=== PATIENT | female | born 1935 | race Caucasian/White ===

== ENCOUNTER → 2017-09-10 | Outpatient (CLI) | payer MEDICARE, OTHER ==
[2014-08-05 06:28] VITALS: BP 136/64
[~2017-09-10] MED LIST: ALEN70TA3 PO; AMLO10TA4 PO; ASCO500T2 PO; AZIT250T PO; AZIT500T PO; CARV12.5 PO; CELE200C PO; CHOL10003 PO; CITA10TA4 PO; CYAN10005 PO; DOCU240C30 PO; FENT1PAT91 TP; FERR325T58 PO; FEXO180T16 PO; FURO40TA4 PO; Fentanyl TD; GABA-586 PO; GLIP5TAB10 PO; HYDR-2678 PO; HYDR-2762 PO; LEVO50TA PO; MULT-246 PO; OMEG1CAP6 PO; OMEP20TA8 PO; POTA10TA10 PO; SIMV20TA3 PO; SITA100T PO; TOLT4CAP PO; TRAM50TA PO
[2017-09-10 13:01] LABS: BASO # 0.1 x10^3/uL (0.0-0.2); BASO % 1 % (0-3); EOS # 0.2 x10^3/uL (0.0-0.7); EOS % 4 % (0-3); HEMATOCRIT 37.4 % (36.0-47.0); HEMOGLOBIN 12.7 g/dL (12.0-15.5); LYMPH # 1.7 x10^3/uL (1.0-4.8); LYMPH % 26 % (24-48); MEAN CORPUSCULAR HEMOGLOBIN 31 pg (25-35); MEAN CORPUSCULAR HGB CONC 34 g/dL (31-37); MEAN CORPUSCULAR VOLUME 91 fL (79-100); MONO # 0.6 x10^3/uL (0.0-1.1); MONO % 9 % (0-9); NEUT # 3.8 x10^3uL (1.8-7.7); NEUT % 60 % (31-73); PLATELET COUNT 186 x10^3/uL (140-400); RED BLOOD COUNT 4.12 x10^6/uL (3.50-5.40); RED CELL DISTRIBUTION WIDTH 14.1 % (11.5-14.5); WHITE BLOOD COUNT 6.3 x10^3/uL (4.0-11.0)
[2017-09-10 13:11] LABS: ALBUMIN 3.7 g/dL (3.4-5.0); CALCIUM 9.5 mg/dL (8.5-10.1); CREATININE 1.6 mg/dL (0.6-1.0); GFR 30.7; TOTAL BILIRUBIN 0.4 mg/dL (0.2-1.0); TOTAL PROTEIN 7.4 g/dL (6.4-8.2)
--- NOTE | 2017-09-10 13:48 | RAD ---
Examination: CT abdomen without contrast HISTORY: History of right upper quadrant tenderness for 3 weeks COMPARISON: 08/03/2014 TECHNIQUE: Axial CT images of the abdomen was performed without contrast. Coronal and sagittal reformats are performed Exposure: One or more of the following individualized dose reduction techniques were utilized for this examination: 1. Automated exposure control 2. Adjustment of the mA and/or kV according to patient size 3. Use of iterative reconstruction technique FINDINGS: Minimal atelectasis bibasilar lungs. No evidence of free air identified in the visualized abdomen. The evaluation of the solid organs is limited due to lack of IV contrast. Evaluation of bowel is limited due to lack of oral contrast. Calcification of the mitral valve identified. Cholecystectomy clips identified. Small cystic hypodensities identified in the liver the largest measuring 1 cm in the right lobe of the liver probably cysts. The visualized spleen, right adrenal grossly appears unremarkable. 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 The visualized pancreas grossly appears unremarkable. Small hiatal hernia is identified. The small bowel is nondilated. Feces and gas noted in the visualized colon. There is a partially visualized cystic structure identified in the right lower quadrant abdomen measuring 4.1 cm could be a right ovarian cyst or cystic lesion is only partially visualized. There is a small fatty density identified in the right kidney measuring 1 cm likely angiomyolipoma. There is a small cystic structure identified in the right kidney measuring 1 cm likely a cyst, unchanged. There is a small cystic structure identified in the left kidney measuring 4 mm is difficult to characterize could be a cyst or cystic lesion. In the superior pole of the left kidney, there is a tiny hyperdensity measuring 8 mm and in the lower pole of the left kidney there is a hyperdensity measuring 1.8 cm appears more prominent compared to prior exam where it measured 8 mm could be a hyperdense cyst or cystic lesion. Moderate degenerative changes thoracolumbar spine. IMPRESSION: 1. Left renal hyperdense cyst or cystic lesions as described. Recommend ultrasound kidneys for further evaluation. 2. Post cholecystectomy changes. 3. Hiatal hernia. 4. A 4.1 cm partially visualized cystic structure identified in the right lower quadrant abdomen probably a right ovarian cyst or cystic lesion. Follow-up nonemergent ultrasound pelvis can be considered. Electronically signed by: Diego Winston MD (09/10/2017 1:45 PM) [id number]
== END | disposition home or self-care (01) ==
LOC: CT 12:23
PROVIDERS: ATTEND Family Medicine
DX: K44.9 Diaphragmatic hernia without obstruction or gangrene (principal); I10 Essential (primary) hypertension; E78.5 Hyperlipidemia, unspecified; E03.9 Hypothyroidism, unspecified; Z90.49 Acquired absence of other specified parts of digestive tract
CPT/HCPCS: 36415; 74150; 80053; 83690; 85025; 85379

== ENCOUNTER 2019-07-20 11:52 | Observation (INO) | payer MEDICARE, OTHER ==
[~2019-07-20] VITALS: Ht 152.4 cm; Wt 83.0 kg
[~2019-07-20 11:52] MED LIST changes: -ASCO500T2 PO; +ASCO500T4 PO; +CYAN-25 PO; -CYAN10005 PO; -HYDR-2762 PO; +HYDR-2765 PO; +SIMV20TA18 PO; -SIMV20TA3 PO
--- NOTE | 2019-07-20 12:11 | PHYS DOC ---
Past History Past Medical History: CAD, COPD, Diabetes, Hypertension Smoking: Non-smoker General Adult HPI: HPI: Patient is a 83-year-old female, with a past history of coronary artery disease, who presents to the emergency department for evaluation. She states that for the past 5 days, she has had intermittent anterior chest pressure, radiating towards her left arm and left neck. The pain is intermittent, and not necessarily exacerbated or brought on by exertion or physical activity. She denies any shortness of breath other than her chronic baseline shortness of breath, has not had any nausea, vomiting, or diaphoresis. The pain does feel somewhat similar to her prior cardiac pain although it has been quite sometime since she has had some cardiac trouble. She went to her PCPs office who did an EKG and sent the patient to the emergency department. There are no alleviating or exacerbating factors to her symptoms. She has taken a baby aspirin today, and is currently having no chest pain. Review of Systems: Review of Systems: Constitutional: Denies fever or chills Eyes: Denies change in visual acuity HENT: Denies nasal congestion or sore throat Respiratory: Denies cough or current shortness of breath Cardiovascular: Denies current chest pain or edema GI: Denies abdominal pain, nausea, vomiting, bloody stools or diarrhea : Denies dysuria Musculoskeletal: Denies back pain or joint pain Integument: Denies rash Neurologic: Denies headache, focal weakness or sensory changes Endocrine: Denies polyuria or polydipsia Lymphatic: Denies swollen glands Psychiatric: Denies depression or anxiety Heart Score: HEART Score for Chest Pain: HEART Score for Chest Pain Response (Comments) Value History Moderately Suspicious 1 ECG Nonspecific Repolarizatio 1 Age > 65 2 Risk Factors >3 Risk Factors or Hx CAD 2 Total 6 Risk Factors: Risk Factors: DM, Current or recent (<one month) smoker, HTN, HLP, family history of CAD, obesity. Risk Scores: Score 0 - 3: 2.5% MACE over next 6 weeks - Discharge Home Score 4 - 6: 20.3% MACE over next 6 weeks - Admit for Clinical Observation Score 7 - 10: 72.7% MACE over next 6 weeks - Early Invasive Strategies Allergies: Allergies: Allergies Coded Allergies Type Severity Reaction Last Updated Verified atenolol Allergy Intermediate 08/05/14 Yes codeine Allergy Intermediate Unknown 07/23/14 Yes lisinopril Allergy Intermediate 07/27/14 No morphine Allergy Intermediate Nausea and Vomiting 07/23/14 Yes Physical Exam: PE: PHYSICAL EXAM: CONSTITUTIONAL: Well developed, well nourished HEAD: normocephalic, atraumatic EENT: PERRL, EOMI. Conjunctivae normal color, sclerae non-icteric; moist mucous membranes. NECK: Supple, non-tender; no meningismus. LUNGS: Lungs CTA, breathing even and unlabored. Normal air movement. HEART: Regular rate and rhythm, no murmur CHEST: No deformity; non-tender ABDOMEN: The abdomen is soft, and non-tender, no masses or bruits. EXTREM: Normal ROM; no deformity, no calf tenderness. Normal pulses palpable in all extremities. There is no pedal edema. SKIN: No rash; no diaphoresis NEURO: Alert; normal speech and cognition; CN's grossly intact; strength grossly intact without focal deficit. BACK: No CVA TTP. Current Patient Data: Labs: Laboratory Tests Test 07/20/19 12:36 White Blood Count 7.7 x10^3/uL Red Blood Count 3.85 x10^6/uL Hemoglobin 12.0 g/dL Hematocrit 35.4 % Mean Corpuscular Volume 92 fL Mean Corpuscular Hemoglobin 31 pg Mean Corpuscular Hemoglobin Concent 34 g/dL Red Cell Distribution Width 14.8 % Platelet Count 180 x10^3/uL Neutrophils (%) (Auto) 64 % Lymphocytes (%) (Auto) 25 % Monocytes (%) (Auto) 8 % Eosinophils (%) (Auto) 2 % Basophils (%) (Auto) 1 % Neutrophils # (Auto) 4.9 x10^3uL Lymphocytes # (Auto) 1.9 x10^3/uL Monocytes # (Auto) 0.6 x10^3/uL Eosinophils # (Auto) 0.1 x10^3/uL Basophils # (Auto) 0.1 x10^3/uL Prothrombin Time 10.2 SEC Prothromb Time International Ratio 1.0 Sodium Level 141 mmol/L Potassium Level 3.9 mmol/L Chloride Level 105 mmol/L Carbon Dioxide Level 28 mmol/L Anion Gap 8 Blood Urea Nitrogen 27 mg/dL Creatinine 1.2 mg/dL Estimated GFR (Cockcroft-Gault) 42.7 BUN/Creatinine Ratio 23 Glucose Level 88 mg/dL Calcium Level 8.8 mg/dL Total Bilirubin 0.5 mg/dL Aspartate Amino Transf (AST/SGOT) 15 U/L Alanine Aminotransferase (ALT/SGPT) 19 U/L Alkaline Phosphatase 48 U/L Troponin I Quantitative < 0.017 ng/mL Total Protein 6.9 g/dL Albumin 3.6 g/dL Albumin/Globulin Ratio 1.1 Current Medications Medications (Trade) Dose Ordered Sig/Dave Route PRN Reason Start Time Stop Time Status Last Admin Dose Admin Aspirin (Aspirin Chewable) 243 mg 1X ONCE PO 07/20/19 12:15 07/20/19 12:24 DC 07/20/19 12:40 EKG: EKG: [] Normal sinus rhythm at a rate of 58 bpm, normal axis, normal intervals, nonspecific ST/T changes/repolarization abnormalities in the inferior leads, rare PVCs. There are no definite acute ischemic changes noted. The EKG does not appear significantly different compared to the patient's EKG from 2015. Radiology/Procedures: Radiology/Procedures: PROCEDURE: PORTABLE CHEST 1V EXAM: Chest, single view. HISTORY: Chest pain. COMPARISON: 08/03/2014 FINDINGS: A frontal view of the chest is obtained. There is no infiltrate, pleural effusion or pneumothorax. The heart is prominent in size. There are healed left rib fractures. IMPRESSION: No acute pulmonary finding.[] Course & Med Decision Making: Course & Med Decision Making Pertinent Labs and Imaging studies reviewed. (See chart for details) [] The patient's condition remains stable. I spoke with the hospitalist, who accepted the patient to the hospital for further evaluation and treatment. Rubin Disclaimer: Rubin Disclaimer: This electronic medical record was generated, in whole or in part, using a voice recognition dictation system. Departure Departure: Impression: Primary Impression: Chest pain Disposition: ADMITTED INPATIENT Admitting Physician: Shanthi Kam Condition: STABLE Referrals: SHANTHI KAM MD (PCP) MARI DUMONT MD July 20, 2019 12:11
[2019-07-20] MEDS ORDERED: ASPIRIN CHEWABLE 81 MG TABLET. PO ONE (12:15)
--- NOTE | 2019-07-20 12:47 | RAD ---
EXAM: Chest, single view. HISTORY: Chest pain. COMPARISON: 08/03/2014 FINDINGS: A frontal view of the chest is obtained. There is no infiltrate, pleural effusion or pneumothorax. The heart is prominent in size. There are healed left rib fractures. IMPRESSION: No acute pulmonary finding. Electronically signed by: Gracy Bucio MD (07/20/2019 12:44 PM) [id number]
--- NOTE | 2019-07-20 12:50 | EKG ---
[address] [address] Test Date: 2019-07-20 Test Time: 11:59:36 Pat Name: YSABEL RAMSEY Department: Room: Gender: F Registered Veterinary Technician: : [id number] Requested By: MARI DUMONT Order Number: [id number] Reading MD: George Ramsey Measurements Intervals [place] Rate: 58 P: 52 MT: 212 QRS: 17 QRSD: 80 T: 28 QT: 430 QTc: 426 Interpretive Statements SINUS RHYTHM VENTRICULAR PREMATURE COMPLEX(ES) ABNORMAL ECG Electronically Signed On 07-21-2019 8:03:18 CDT by George Ramsey
[2019-07-20 12:52] LABS: BASO # 0.1 x10^3/uL (0.0-0.2); BASO % 1 % (0-3); EOS # 0.1 x10^3/uL (0.0-0.7); EOS % 2 % (0-3); HEMATOCRIT 35.4 % (36.0-47.0); LYMPH # 1.9 x10^3/uL (1.0-4.8); LYMPH % 25 % (24-48); MEAN CORPUSCULAR HEMOGLOBIN 31 pg (25-35); MEAN CORPUSCULAR HGB CONC 34 g/dL (31-37); MEAN CORPUSCULAR VOLUME 92 fL (79-100); MONO # 0.6 x10^3/uL (0.0-1.1); MONO % 8 % (0-9); NEUT # 4.9 x10^3uL (1.8-7.7); NEUT % 64 % (31-73); PLATELET COUNT 180 x10^3/uL (140-400); RED BLOOD COUNT 3.85 x10^6/uL (3.50-5.40); RED CELL DISTRIBUTION WIDTH 14.8 % (11.5-14.5); WHITE BLOOD COUNT 7.7 x10^3/uL (4.0-11.0)
[2019-07-20 12:57] LABS: CALCIUM 8.8 mg/dL (8.5-10.1); CREATININE 1.2 mg/dL (0.6-1.0); GFR 42.7; POTASSIUM 3.9 mmol/L (3.5-5.1)
[2019-07-20 13:04] LABS: ALBUMIN 3.6 g/dL (3.4-5.0); ALBUMIN/GLOBULIN RATIO 1.1 (1.0-1.7); TOTAL BILIRUBIN 0.5 mg/dL (0.2-1.0); TOTAL PROTEIN 6.9 g/dL (6.4-8.2)
[2019-07-20] MEDS ORDERED: CYCL1DRO EACHEYE (13:53)
[2019-07-20] MEDS ORDERED: ZOLP10TA PO (13:53)
[2019-07-20] MEDS ORDERED: LEVO75TA PO (13:53)
[2019-07-20] MEDS ORDERED: ISOS30TA4 PO (13:53)
[2019-07-20] MEDS ORDERED: ESCITALOPRAM OX20 MG PO (13:53)
[2019-07-20] MEDS ORDERED: ATOR40TA59 PO (13:53)
[2019-07-20] MEDS ORDERED: PANT40TA5 PO (13:53)
[2019-07-20] MEDS ORDERED: CARV12.547 PO (13:53)
[2019-07-20 15:07] VITALS: BP 183/68
[2019-07-20] MEDS ORDERED: ZOLPIDEM 5 MG TABLET. PO PRN (17:30)
[2019-07-20 17:56] VITALS: BP 154/54
[2019-07-20] MEDS: CARVEDILOL 12.5 MG TABLET PO SCH (18:09)
[2019-07-20] MEDS: glipiZIDE 5 MG TABLET PO SCH (18:09)
[2019-07-20] MEDS: POTASSIUM CHLORIDE 10 MEQ TABLET.ER. PO SCH (18:09)
[2019-07-20 19:20] VITALS: BP 149/67
[2019-07-20] MEDS ORDERED: ATORVASTATIN CALCIUM 20 MG TABLET PO SCH (21:00)
[2019-07-20] MEDS ORDERED: amLODIPine BESYLATE 10 MG TABLET PO SCH (21:00)
[2019-07-20] MEDS ORDERED: ASCORBIC ACID 500 MG TABLET PO SCH (21:00)
[2019-07-20] MEDS ORDERED: CARVEDILOL 12.5 MG TABLET PO SCH (21:00)
[2019-07-20] MEDS: cycloSPORINE 0.05% OPTH 1 DROP DROPERETTE OU SCH (21:25)
[2019-07-20] MEDS: OXYBUTYNIN CHLORIDE 5 MG TABLET PO SCH (21:25)
[2019-07-20] MEDS: DOCUSATE SODIUM 100 MG CAPSULE PO SCH (21:25)
[2019-07-20] MEDS: GABAPENTIN 300 MG CAPSULE. PO SCH (21:25)
[2019-07-20 21:30] VITALS: BP 176/68
[2019-07-20 22:35] VITALS: BP 155/67
[2019-07-21 05:35] VITALS: BP 163/67
[2019-07-21] MEDS ORDERED: LEVOTHYROXINE 75 MCG TABLET PO SCH (06:00)
[2019-07-21] MEDS ORDERED: PANTOPRAZOLE 40 MG TABLET. PO SCH (07:30)
[2019-07-21] MEDS: POTASSIUM CHLORIDE 10 MEQ TABLET.ER. PO SCH (07:58)
[2019-07-21] MEDS: OXYBUTYNIN CHLORIDE 5 MG TABLET PO SCH (07:59)
[2019-07-21] MEDS: CARVEDILOL 12.5 MG TABLET PO SCH (08:00)
[2019-07-21] MEDS: GABAPENTIN 300 MG CAPSULE. PO SCH (08:01)
[2019-07-21] MEDS: DOCUSATE SODIUM 100 MG CAPSULE PO SCH (08:01)
[2019-07-21] MEDS: glipiZIDE 5 MG TABLET PO SCH (08:03)
[2019-07-21 08:12] VITALS: BP 138/66
--- NOTE | 2019-07-21 08:25 | PDOC2 ---
CARDIAC CONSULT DATE OF CONSULT Date Of Consult DATE: 07/21/19 TIME: 08:10 REASON FOR CONSULT Reason for Consult Chest pain REFERRING PHYSICIAN Referring Physician Dr. Kam SOURCE Source: Chart review, Patient HPI History of Present Illness This is an 83 yo female who presented secondary to chest pain. Patient reports h/o intermittent left chest pain for the last week. Describes as pressure/heaviness. Located in her left chest. Radiates up to her left neck and to her left shoulder. Pain is associated with nausea, shortness of breath, and diaphoresis. No palpitations. Pain initially resolved without intervention. Saturday, pain lasted longer and did not resolved so she took SL nitro and pain eventually resolved. Due to pain and h/o CAD, she made appointment with primary care provider who referred her to the ED for further evaluation and treatment. Patient reports h/o CAD with angioplasty on 2 separate occasions about 15-20 years ago. Underwent further cardiac evaluation about 1 year ago at [facility], including stress test and echocardiogram, which she reports as "okay". PAST MEDICAL HISTORY Cardiovascular: CAD (s/p previous angioplasty), HTN, hyperipidemia Pulmonary: COPD, Other (TERRI) GI: GERD Psych: Depression Musculoskeletal: Osteoarthritis Renal/: Chronic renal insuff Endocrine: Diabetes, Hypothyroidism PAST SURGICAL HISTORY Past Surgical History: Cholecystectomy, Hysterectomy, Tonsillectomy FAMILY HISTORY Family History: Coronary Artery Disease (mother ), Hypertension SOCIAL HISTORY Smoke: Quit (in 70's ) ALCOHOL: none Drugs: None Lives: Alone CURRENT MEDICATIONS Current Medications Current Medications Aspirin (Aspirin Chewable) 243 mg 1X ONCE PO Last administered on 07/20/19at 12:40; Start 07/20/19 at 12:15; Stop 07/20/19 at 12:24; Status DC Amlodipine Besylate (Norvasc) 10 mg HS PO Last administered on 07/20/19at 21:24; Start 07/20/19 at 21:00 Ascorbic Acid (Vitamin C) 500 mg HS PO Last administered on 07/20/19at 21:24; Start 07/20/19 at 21:00 Carvedilol (Coreg) 12.5 mg BIDWMEALS PO Last administered on 07/21/19at 08:00; Start 07/20/19 at 18:00 Carvedilol (Coreg) 12.5 mg BID PO ; Start 07/20/19 at 21:00; Status UNV Vitamin D (Vitamin D3) 1,000 unit DAILY PO Last administered on 07/21/19 07:58 ; Start 07/21/19 at 09:00 Cyanocobalamin (Vitamin B-12) 500 mcg DAILY PO Last administered on 07/21/19at 07:59; Start 07/21/19 at 09:00 Cyclosporine (Restasis) 1 drop BID OU Last administered on 07/20/19at 21:25; Start 07/20/19 at 21:00 Furosemide (Lasix) 40 mg DAILY PO Last administered on 07/21/19at 08:01; Start 07/21/19 at 09:00 Gabapentin (Neurontin) 300 mg BID PO Last administered on 07/21/19 08:01; Start 07/20/19 at 21:00 Glipizide (Glucotrol) 5 mg BIDBFRMEAL PO Last administered on 07/21/19at 08:03; Start 07/20/19 at 18:00 Isosorbide Mononitrate (Imdur) 30 mg DAILY PO ; Start 07/21/19 at 09:00 Levothyroxine Sodium (Synthroid) 75 mcg DAILY06 PO Last administered on 07/21/19at 05:33; Start 07/21/19 at 06:00 Fish Oil (Fish Oil) 1,000 mg DAILY PO Last administered on 07/21/19 08:01; Start 07/21/19 at 09:00 Pantoprazole Sodium (Protonix) 40 mg DAILYAC PO Last administered on 07/21/19at 07:58; Start 07/21/19 at 07:30 Atorvastatin Calcium (Lipitor) 40 mg QHS PO Last administered on 07/20/19at 21:24; Start 07/20/19 at 21:00 Celecoxib (CeleBREX) 200 mg DAILY PO Last administered on 07/21/19at 08:01; Start 07/21/19 at 09:00 Docusate Sodium (Colace) 100 mg BID PO Last administered on 07/21/19at 08:01; Start 07/20/19 at 21:00 Citalopram Hydrobromide (CeleXA) 40 mg DAILY PO Last administered on 07/21/19at 08:01; Start 07/21/19 at 09:00 Cetirizine HCl (ZyrTEC) 10 mg DAILY PO Last administered on 07/21/19at 08:01; Start 07/21/19 at 09:00 Multivitamins/ Calcium (Thera-M Plus) 1 tab DAILY PO Last administered on 07/09 04/30at 08:01; Start 07/21/19 at 09:00 Potassium Chloride (Klor-Con) 10 meq BIDWMEALS PO Last administered on 07/21/19at 07:58; Start 07/20/19 at 18:00 Linagliptin (Tradjenta) 5 mg DAILY PO Last administered on 07/21/19at 07:58; Start 07/21/19 at 09:00 Oxybutynin Chloride (Ditropan) 5 mg [id number] PO Last administered on 07/21/19at 07:59; Start 07/20/19 at 21:00 Zolpidem Tartrate (Ambien) 5 mg PRN QHS PRN PO INSOMNIA, MRX1 Last administered on 07/20/19at 21:25; Start 07/20/19 at 17:30 Active Scripts Active Reported Restasis (Cyclosporine) 1 Each Droperette 1 Drop EACHEYE BID Carvedilol (Carvedilol) 12.5 Mg Tablet 12.5 Mg PO BIDWMEALS Isosorbide Mononitrate Er (Isosorbide Mononitrate) 30 Mg Tab.er.24h 1 Tab PO DAILY Ambien (Zolpidem Tartrate) 10 Mg Tablet 10 Mg PO PRN QHS PRN Pantoprazole Sodium 40 Mg Tablet.dr 1 Tab PO DAILY Synthroid (Levothyroxine Sodium) 75 Mcg Tablet 1 Tab PO DAILY Escitalopram Oxalate 20 Mg Tablet 1 Tab PO DAILY Atorvastatin Calcium 40 Mg Tablet 1 Tab PO DAILY Detrol La (Tolterodine Tartrate) 4 Mg Cap.er.24h 1 Cap PO HS for urinary symptoms Multi-Vitamin Daily (Multivitamin) 1 Each Tablet 1 Each PO DAILY supplement last dose: 08/05 @ 8:10 AM next dose: 08/06 AM Januvia (Sitagliptin Phosphate) 100 Mg Tablet 1 Tab PO DAILY for high blood sugar last dose: 08/05 @ 8:10 AM next dose: 08/06 AM Potassium Chloride 10 Meq Tablet.er 1 Tab PO BID supplement last dose: 08/05 @ 8:10 AM next dose: 08/05 PM Fish Oil 1,000 Mg Capsule ([place]-3 Fatty Acids/Fish Oil) 1 Each Capsule 1 Each PO DAILY supplement not given this admission Glipizide 5 Mg Tablet 1 Tab PO BID for high blood sugar last dose: 08/05 @ 5:55 AM next dose: 08/05 PM Gabapentin (Gabapentin) 300 Mg Capsule 1 Cap PO BID for neuropathy last dose: 08/05 @ 8:10 AM next dose: 08/05 PM Furosemide 40 Mg Tablet 1 Tab PO DAILY for fluid retention last dose: 08/05 @ 8:10 AM next dose: 08/06 Fosamax (Alendronate Sodium) 70 Mg Tablet 1 Tab PO WEEKLY for osteoporosis not given this admission Fexofenadine Hcl 180 Mg Tablet 1 Tab PO DAILY for allergies not given this admission Surfak (Docusate Calcium) 240 Mg Capsule 240 Mg PO BID stool softener last dose: 08/05 @ 8:10 AM next dose: 08/05 PM Vitamin B-12 (Cyanocobalamin (Vitamin B-12)) 1,000 Mcg Tablet 0.5 Tab PO DAILY supplement last dose: 08/05 @ 8:10 AM next dose: 08/06 Vitamin D3 (Cholecalciferol (Vitamin D3)) 1,000 Unit Tablet 1 Tab PO DAILY supplement last dose: 08/05 @ 8:10 AM next dose: 08/06 Celebrex (Celecoxib) 200 Mg Capsule 1 Cap PO DAILY for arthritis last dose: 08/05 @ 8:10 AM next dose: 08/06 AM Coreg (Carvedilol) 12.5 Mg Tablet 1 Tab PO BID for high blood pressure last dose: 08/05 @ 8:10 AM next dose: 08/05 PM Vitamin C (Ascorbic Acid) 500 Mg Tablet 500 Mg PO HS supplement not given this admission Norvasc (Amlodipine Besylate) 10 Mg Tablet 1 Tab PO HS for high blood pressure last dose: 08/04 @ 9:22 PM next dose: 08/05 @ bedtime ALLERGIES Allergies: Coded Allergies: atenolol (Verified Allergy, Intermediate, 08/05/14) codeine (Verified Allergy, Intermediate, Unknown, 07/23/14) lisinopril (Unverified Allergy, Intermediate, 07/27/14) morphine (Verified Allergy, Intermediate, Nausea and Vomiting, 07/23/14) ROS Review of Systems 14 point ROS conducted with pertinent positives noted above in HPI PHYSICAL EXAM General: Alert, Oriented X3, Cooperative, No acute distress HEENT: Atraumatic, Mucous membr. moist/pink Lungs: Clear to auscultation, Normal air movement Heart: Regular rate Abdomen: Soft, No tenderness Extremities: No edema, Normal pulses Neuro: Normal speech, Sensation intact Psych/Mental Status: Mental status NL, Mood NL MUSCULOSKELETAL: Osteoarthritic changes both hands VITALS Vital Signs Vital Signs Date Time Temp Pulse Resp B/P (MAP) Pulse Ox O2 Delivery O2 Flow Rate FiO2 07/21/19 08:00 67 138/70 07/21/19 05:35 97.8 18 97 Nasal Cannula 2.0 LABS LABS Laboratory Tests Test 07/20/19 12:36 07/20/19 16:50 07/20/19 19:56 07/21/19 07:38 White Blood Count 7.7 x10^3/uL (4.0-11.0) Red Blood Count 3.85 x10^6/uL (3.50-5.40) Hemoglobin 12.0 g/dL (12.0-15.5) Hematocrit 35.4 % (36.0-47.0) Mean Corpuscular Volume 92 fL (79-100) Mean Corpuscular Hemoglobin 31 pg (25-35) Mean Corpuscular Hemoglobin Concent 34 g/dL (31-37) Red Cell Distribution Width 14.8 % (11.5-14.5) Platelet Count 180 x10^3/uL (140-400) Neutrophils (%) (Auto) 64 % (31-73) Lymphocytes (%) (Auto) 25 % (24-48) Monocytes (%) (Auto) 8 % (0-9) Eosinophils (%) (Auto) 2 % (0-3) Basophils (%) (Auto) 1 % (0-3) Neutrophils # (Auto) 4.9 x10^3uL (1.8-7.7) Lymphocytes # (Auto) 1.9 x10^3/uL (1.0-4.8) Monocytes # (Auto) 0.6 x10^3/uL (0.0-1.1) Eosinophils # (Auto) 0.1 x10^3/uL (0.0-0.7) Basophils # (Auto) 0.1 x10^3/uL (0.0-0.2) Prothrombin Time 10.2 SEC (9.4-11.4) Prothromb Time International Ratio 1.0 (0.9-1.1) Sodium Level 141 mmol/L (136-145) Potassium Level 3.9 mmol/L (3.5-5.1) Chloride Level 105 mmol/L (98-107) Carbon Dioxide Level 28 mmol/L (21-32) Anion Gap 8 (6-14) Blood Urea Nitrogen 27 mg/dL (7-20) Creatinine 1.2 mg/dL (0.6-1.0) Estimated GFR (Cockcroft-Gault) 42.7 BUN/Creatinine Ratio 23 (6-20) Glucose Level 88 mg/dL (70-99) Calcium Level 8.8 mg/dL (8.5-10.1) Total Bilirubin 0.5 mg/dL (0.2-1.0) Aspartate Amino Transf (AST/SGOT) 15 U/L (15-37) Alanine Aminotransferase (ALT/SGPT) 19 U/L (14-59) Alkaline Phosphatase 48 U/L (46-116) Troponin I Quantitative < 0.017 ng/mL (0-0.055) < 0.017 ng/mL (0-0.055) < 0.017 ng/mL (0-0.055) Total Protein 6.9 g/dL (6.4-8.2) Albumin 3.6 g/dL (3.4-5.0) Albumin/Globulin Ratio 1.1 (1.0-1.7) Glucose (Fingerstick) 127 mg/dL (70-99) ASSESSMENT/PLAN Assessment/Plan 1. Chest pain, typical features. AMI ruled out 2. Accelerated hypertension 3. Hyperlipidemia; statin 4. Diabetes, II 5. CKD 6. TERRI; O2 at HS 7. COPD; appears compensated Recommendations Add ASA Continue statin, imdur Lipids Secondary prevention measures Given symptomatology and history/risk factors, will plan to transfer to [place] for cardiac catheterization with possible PCI. R/b/a discussed with patient and she is agreeable. Keep NPO KIT HAMILTON APRN July 21, 2019 08:25
[2019-07-21] MEDS ORDERED: CITALOPRAM 20 MG TABLET. PO SCH (09:00)
[2019-07-21] MEDS ORDERED: CHOLECALCIFEROL (VITAMIN D3) 1,000 UNIT TABLET PO SCH (09:00)
[2019-07-21] MEDS ORDERED: ISOSORBIDE MONONITRATE ER 30 MG TAB.ER.24H PO SCH (09:00)
[2019-07-21] MEDS ORDERED: CETIRIZINE HCL 10 MG TABLET PO SCH (09:00)
[2019-07-21] MEDS ORDERED: OMEGA-3 FATTY ACIDS/FISH OIL 1,000 MG CAPSULE. PO SCH (09:00)
[2019-07-21] MEDS ORDERED: CELECOXIB 100 MG CAPSULE PO SCH (09:00)
[2019-07-21] MEDS ORDERED: LINAGLIPTIN 5 MG TABLET PO SCH (09:00)
[2019-07-21] MEDS ORDERED: FUROSEMIDE 40 MG TABLET PO SCH (09:00)
[2019-07-21] MEDS ORDERED: CYANOCOBALAMIN (VITAMIN B-12) 1,000 MCG TABLET. PO SCH (09:00)
[2019-07-21] MEDS ORDERED: MULTIVITAMIN with MINERAL TABLET. PO SCH (09:00)
[2019-07-21] MEDS: cycloSPORINE 0.05% OPTH 1 DROP DROPERETTE OU SCH (09:07)
[2019-07-21 10:25] VITALS: BP 117/67
--- NOTE | 2019-07-21 18:32 | DS ---
DATE OF DISCHARGE: 07/21/2019 HOSPITAL COURSE: An 83-year-old female in with chest pain, known history of coronary artery disease in the past, came in with chest pain that woke her up out of sleep radiating down her left arm. Cardiac enzymes were negative. She had workup. She was seen by Cardiology who took her off for a heart catheterization down to [place] today. The patient generalized, doing fairly well, noted she had heaviness in her chest and down her left arm and consented to have the cardiac catheterization down at [place] and she was transferred via EMS down there for further evaluation. IMPRESSION: Chest pain, angina, which was relieved with nitroglycerin. She will continue to monitor the patient and make further evaluation on her as indicated once Dr. Patton has made her ____ with her evaluation and she will be on a heart healthy diet, decreased activity. SHANTHI LEHMAN MD DR: EDE/pia JOB#: [id number] / [id number]
[2019-07-21 19:16] LABS: THYROID STIM HORMONE (TSH) 3.067 uIU/mL (0.358-3.740)
== END 2019-07-21 11:00 | disposition short-term general hospital (02) ==
LOC: ER 11:52 → 1 SOUTH 13:20
PROVIDERS: ADMIT Family Medicine; ATTEND Family Medicine
DX: R07.9 Chest pain, unspecified (principal); I25.119 Atherosclerotic heart disease of native coronary artery with unspecified angina pectoris; E78.5 Hyperlipidemia, unspecified; I12.9 Hypertensive chronic kidney disease with stage 1 through stage 4 chronic kidney disease, or unspecified chronic kidney disease; N18.9 Chronic kidney disease, unspecified; E11.22 Type 2 diabetes mellitus with diabetic chronic kidney disease; J44.9 Chronic obstructive pulmonary disease, unspecified; K21.9 Gastro-esophageal reflux disease without esophagitis; E03.9 Hypothyroidism, unspecified; G47.33 Obstructive sleep apnea (adult) (pediatric); F32.9 Major depressive disorder, single episode, unspecified; M19.90 Unspecified osteoarthritis, unspecified site; Z90.710 Acquired absence of both cervix and uterus; Z79.899 Other long term (current) drug therapy; Z87.891 Personal history of nicotine dependence; Z79.82 Long term (current) use of aspirin
CPT/HCPCS: 36415; 71045; 80053; 80061; 82947; 84443; 84484; 85025; 85610; 93005; 99285; G0378; G0379

== ENCOUNTER 2019-07-24 15:39 | Inpatient (IN) | payer MEDICARE, OTHER ==
[~2019-07-24] VITALS: Ht 152.4 cm; Wt 89.0 kg
[~2019-07-24 15:39] MED LIST changes: +ATOR40TA59 PO; +CARV12.547 PO; +CYCL1DRO EACHEYE; +ESCITALOPRAM OX20 MG PO; +ISOS30TA4 PO; +LEVO75TA PO; +PANT40TA6 PO; +ZOLP10TA PO
--- NOTE | 2019-07-24 16:02 | PHYS DOC ---
Past History Past Medical History: COPD, Diabetes, Heart Disease, Hypertension, OR Past Surgical History: Angioplasty Smoking: Non-smoker Alcohol Use: Occasionally General Adult EDM: Chief Complaint: MECHANICAL FALL HPI: HPI: Patient is a 83-year-old female who was told by her family doctor to come in to ER for evaluation and to be admitted to hospital due to recent fall. Patient says she got up this morning, she tried to open her cabinet and the next thing she knew she fell down on her left knee and hit her right shoulder on the cabinet. Patient denies hitting her head, it happened around 9 AM this morning. Patient went to [facility] this morning had x-ray done of her right shoulder , x-rays showed comminuted fracture of the right humeral head. A shoulder immobilizer was placed on the right arm, she was discharged home. Patient called her family doctor and he told her to come to ER so she can be admitted to hospital because she cannot take care of her self at home. Patient says she has been falling frequently lately. Patient denies any back pain, no abdominal pain, no chest pain, no headache, no neck pain. Review of Systems: Review of Systems: Constitutional: Denies fever or chills Eyes: Denies change in visual acuity HENT: Denies nasal congestion or sore throat Respiratory: Denies cough or shortness of breath Cardiovascular: Denies chest pain or edema GI: Denies abdominal pain, nausea, vomiting, bloody stools or diarrhea : Denies dysuria Musculoskeletal: Denies back pain, positive for left knee pain, right shoulder pain. Integument: Denies rash Neurologic: Denies headache, focal weakness or sensory changes Endocrine: Denies polyuria or polydipsia Lymphatic: Denies swollen glands Psychiatric: Denies depression or anxiety Heart Score: Risk Factors: Risk Factors: DM, Current or recent (<one month) smoker, HTN, HLP, family history of CAD, obesity. Risk Scores: Score 0 - 3: 2.5% MACE over next 6 weeks - Discharge Home Score 4 - 6: 20.3% MACE over next 6 weeks - Admit for Clinical Observation Score 7 - 10: 72.7% MACE over next 6 weeks - Early Invasive Strategies Allergies: Allergies: Allergies Coded Allergies Type Severity Reaction Last Updated Verified atenolol Allergy Intermediate 08/05/14 Yes codeine Allergy Intermediate Unknown 07/23/14 Yes lisinopril Allergy Intermediate 07/27/14 No morphine Allergy Intermediate Nausea and Vomiting 07/23/14 Yes Physical Exam: PE: Constitutional: Well developed, well nourished, no acute distress, non-toxic appearance. [] HENT: Normocephalic, atraumatic, bilateral external ears normal, oropharynx imtiaz st, no oral exudates, nose normal. [] Eyes: PERRLA, EOMI, conjunctiva normal, no discharge. [] Neck: Normal range of motion, no tenderness, supple, no stridor. [] Cardiovascular:Heart rate regular rhythm, no murmur [] Lungs & Thorax: Bilateral breath sounds clear to auscultation [] Abdomen: Bowel sounds normal, soft, no tenderness, no masses, no pulsatile masses. [] Skin: Warm, dry, no erythema, no rash. [] Back: No tenderness, no CVA tenderness. [] Extremities: Left knee tender to palpation, full range of motion, no deformity. Right shoulder is in right shoulder immobilizer, tender to palpation, no deformity noted. Neurologic: Alert and oriented X 3, normal motor function, normal sensory fu nction, no focal deficits noted. [] Psychologic: Affect normal, judgement normal, mood normal. [] Current Patient Data: Vital Signs: Vital Signs Date Time Temp Pulse Resp B/P (MAP) Pulse Ox O2 Delivery O2 Flow Rate FiO2 07/24/19 15:45 98.1 60 18 157/64 (95) 98 Room Air EKG: EKG: EKG was done at 1619, heart rate of 58 bpm, sinus rhythm, no ST segment elevation, normal QT interval. [] Radiology/Procedures: Radiology/Procedures: [][address] [address] IMAGING REPORT Signed PATIENT: YSABEL RAMSEY MACCOUNT: [id number] : 1935 LOCATION: ER AGE: 83 SEX: F EXAM STATUS: REG ER ORD. PHYSICIAN: SHANTHI OBANDO DO REASON: ct of left distal femur, left knee, fell, suspected fracture PROCEDURE: CT LOWER EXTREMITY WO LEFT INDICATION: post fall with possible fracture COMPARISON: Earlier secondary TECHNIQUE: Axial CT images obtained through the left knee without contrast. One or more of the following individualized dose reduction techniques were utilized for this examination: 1. Automated exposure control; 2. Adjustment of the mA and/or kV according to patient size; 3. Use of iterative reconstruction technique. FINDINGS: Postoperative changes to the distal femur with intramedullary edwina and screws with callus formation. Likely from old fracture fixation. Screw tract is seen at distal femur. There are some loose bodies within the knee as well as degenerative changes. Lipohemarthrosis is identified as well as a fracture through the patella lateral facet which is essentially nondisplaced and extends to the articular surface. Subtle lucency is identified at the lateral femoral condyle. Calcific atherosclerosis. IMPRESSION: * Nondisplaced intra-articular fracture of the lateral patellar facet. There is associated lipohemarthrosis. * The subtle lucency seen at the distal femur on plain film is faintly seen on this exam as well and is immediately adjacent to the patellar fracture. Given the appearance would favor that this is secondary to a vascular channel rather than nondisplaced fracture although this is immediately adjacent to the patient's patellar injury. Electronically signed by: Abby Sanders MD (07/24/2019 5:00 PM) [id number] DICTATED AND SIGNED BY: ABBY SANDERS MD DATE: 07/24/191699 CC: SHANTHI LEHMAN MD; SHANTHI OBANDO DO ~ [place] [address] IMAGING REPORT Signed PATIENT: YSABEL RAMSEY MACCOUNT: [id number] : 1935 LOCATION: ER AGE: 83 SEX: F EXAM STATUS: REG ER ORD. PHYSICIAN: SHANTHI OBANDO DO REASON: fell, left knee pain PROCEDURE: KNEE LEFT 3V KNEE LEFT 3V 07/24/2019 3:54 PM INDICATION: Fall, left knee pain COMPARISON: None available. TECHNIQUE: 3 views of the left knee are provided. FINDINGS/ IMPRESSION: 1. Small knee joint effusion. 2. Intramedullary edwina and screws are identified within the distal femur. Healed distal femoral fracture is noted. 3. Cortical lucency is identified extending through the lateral femoral condyle from the distal tip of the distal screw of the intramedullary nail. This finding does not extend through the articular surface. It is only seen on the oblique view and could represent fracture or nutrient channel. Correlate with point tenderness. CT could be of benefit if clinically warranted. Electronically signed by: Jeff Mcdonald MD (07/24/2019 4:21 PM) [facility] DICTATED AND SIGNED BY: JEFF MCDONALD MD DATE: 07/24/191620 CC: SHANTHI LEHMAN MD; SHANTHI OBANDO DO ~ [address] [address] IMAGING REPORT Signed PATIENT: YSABEL RAMSEY MACCOUNT: [id number] : 1935 LOCATION: ER AGE: 83 SEX: F EXAM STATUS: REG ER ORD. PHYSICIAN: SHANTHI OBANDO DO REASON: frequent fall PROCEDURE: CT HEAD WO CONTRAST CT HEAD INDICATION: Frequent falls COMPARISON: None Available. Exposure: One or more of the following individualized dose reduction techniques were utilized for this examination: 1. Automated exposure control 2. Adjustment of the mA and/or kV according to patient size 3. Use of iterative reconstruction technique TECHNIQUE: 5 mm contiguous axial images were obtained from the skull base to the vertex in both bone and soft tissue algorithm. FINDINGS: Mild bilateral periventricular white matter hypodensities likely chronic small vessel ischemic disease. No evidence of acute intracranial hemorrhage. No extra-axial fluid collections. No mass effect or midline shift. Ventricular size is appropriate. Basal cisterns are patent. No fractures identified.Fu-white differentiation is preserved.Globes and orbits are within normal limits. Paranasal sinuses and mastoid air cells are clear. IMPRESSION: No acute intracranial findings. Electronically signed by: Diego Owens MD (07/24/2019 4:20 PM) [id number] DICTATED AND SIGNED BY: DIEGO OWENS MD DATE: 07/24/191619 CC: SHANTHI LEHMAN MD; SHANTHI OBANDO DO ~ Course & Med Decision Making: Course & Med Decision Making Pertinent Labs and Imaging studies reviewed. (See chart for details) Patient is an 83-year-old female who was evaluated in ED today due to left knee and right shoulder pain patient was found to have humeral head fracture, left patella fracture. Patient will be admitted to hospital for rehab. A knee immobilizer was applied to left knee. Dragon Disclaimer: Rubin Disclaimer: This electronic medical record was generated, in whole or in part, using a voice recognition dictation system. Departure Departure: Impression: Primary Impression: Fracture of humeral head, right, closed Additional Impressions: Left patella fracture Weakness Frequent falls Disposition: 09 ADMITTED INPATIENT Condition: STABLE Referrals: SHANTHI LEHMAN MD (PCP) SHANTHI OBANDO DO July 24, 2019 16:02
--- NOTE | 2019-07-24 16:23 | RAD ---
CT HEAD INDICATION: Frequent falls COMPARISON: None Available. Exposure: One or more of the following individualized dose reduction techniques were utilized for this examination: 1. Automated exposure control 2. Adjustment of the mA and/or kV according to patient size 3. Use of iterative reconstruction technique TECHNIQUE: 5 mm contiguous axial images were obtained from the skull base to the vertex in both bone and soft tissue algorithm. FINDINGS: Mild bilateral periventricular white matter hypodensities likely chronic small vessel ischemic disease. No evidence of acute intracranial hemorrhage. No extra-axial fluid collections. No mass effect or midline shift. Ventricular size is appropriate. Basal cisterns are patent. No fractures identified.Fu-white differentiation is preserved.Globes and orbits are within normal limits. Paranasal sinuses and mastoid air cells are clear. IMPRESSION: No acute intracranial findings. Electronically signed by: Diego Winston MD (07/24/2019 4:20 PM) [id number]
--- NOTE | 2019-07-24 16:24 | RAD ---
KNEE LEFT 3V 07/24/2019 3:54 PM INDICATION: Fall, left knee pain COMPARISON: None available. TECHNIQUE: 3 views of the left knee are provided. FINDINGS/ IMPRESSION: 1. Small knee joint effusion. 2. Intramedullary edwina and screws are identified within the distal femur. Healed distal femoral fracture is noted. 3. Cortical lucency is identified extending through the lateral femoral condyle from the distal tip of the distal screw of the intramedullary nail. This finding does not extend through the articular surface. It is only seen on the oblique view and could represent fracture or nutrient channel. Correlate with point tenderness. CT could be of benefit if clinically warranted. Electronically signed by: Arlene Murillo MD (07/24/2019 4:21 PM) GERALDINE
[2019-07-24 16:35] LABS: BASO # 0.1 x10^3/uL (0.0-0.2); BASO % 1 % (0-3); EOS # 0.1 x10^3/uL (0.0-0.7); EOS % 1 % (0-3); HEMATOCRIT 33.8 % (36.0-47.0); HEMOGLOBIN 11.2 g/dL (12.0-15.5); LYMPH # 1.3 x10^3/uL (1.0-4.8); LYMPH % 10 % (24-48); MEAN CORPUSCULAR HEMOGLOBIN 31 pg (25-35); MEAN CORPUSCULAR HGB CONC 33 g/dL (31-37); MEAN CORPUSCULAR VOLUME 93 fL (79-100); MONO # 1.1 x10^3/uL (0.0-1.1); MONO % 8 % (0-9); NEUT # 11.2 x10^3uL (1.8-7.7); NEUT % 81 % (31-73); PLATELET COUNT 166 x10^3/uL (140-400); RED BLOOD COUNT 3.63 x10^6/uL (3.50-5.40); RED CELL DISTRIBUTION WIDTH 14.6 % (11.5-14.5); WHITE BLOOD COUNT 13.8 x10^3/uL (4.0-11.0)
--- NOTE | 2019-07-24 17:03 | RAD ---
INDICATION: post fall with possible fracture COMPARISON: Earlier secondary TECHNIQUE: Axial CT images obtained through the left knee without contrast. One or more of the following individualized dose reduction techniques were utilized for this examination: 1. Automated exposure control; 2. Adjustment of the mA and/or kV according to patient size; 3. Use of iterative reconstruction technique. FINDINGS: Postoperative changes to the distal femur with intramedullary edwina and screws with callus formation. Likely from old fracture fixation. Screw tract is seen at distal femur. There are some loose bodies within the knee as well as degenerative changes. Lipohemarthrosis is identified as well as a fracture through the patella lateral facet which is essentially nondisplaced and extends to the articular surface. Subtle lucency is identified at the lateral femoral condyle. Calcific atherosclerosis. IMPRESSION: * Nondisplaced intra-articular fracture of the lateral patellar facet. There is associated lipohemarthrosis. * The subtle lucency seen at the distal femur on plain film is faintly seen on this exam as well and is immediately adjacent to the patellar fracture. Given the appearance would favor that this is secondary to a vascular channel rather than nondisplaced fracture although this is immediately adjacent to the patient's patellar injury. Electronically signed by: David Gutierrez MD (07/24/2019 5:00 PM) [id number]
[2019-07-24 17:20] LABS: CALCIUM 8.9 mg/dL (8.5-10.1); CREATININE 1.3 mg/dL (0.6-1.0); GFR 38.9
[2019-07-24 17:26] LABS: ALBUMIN 3.8 g/dL (3.4-5.0); ALBUMIN/GLOBULIN RATIO 1.2 (1.0-1.7); MAGNESIUM 2.5 mg/dL (1.8-2.4); TOTAL BILIRUBIN 0.5 mg/dL (0.2-1.0)
[2019-07-24 17:31] LABS: POTASSIUM 5.3 mmol/L (3.5-5.1)
[2019-07-24] MEDS ORDERED: ONDANSETRON PF 4 MG/2 ML VIAL. IVP PRN (17:45)
--- NOTE | 2019-07-24 17:47 | EKG ---
[address] [address] Test Date: 2019-07-24 Test Time: 16:19:57 Pat Name: YSABEL RAMSEY Department: Room: Gender: X Ray Nurse: : 1935 Requested By: SHANTHI OBANDO Order Number: [id number] Reading MD: Rolan Patton MD Measurements Intervals [place] Rate: P: WV: QRS: QRSD: T: QT: QTc: Interpretive Statements SR Electronically Signed On 07-27-2019 9:12:51 CDT by Rolan Patton MD
[2019-07-24 18:03] LABS: CLARITY,URINE CLEAR; COLOR,URINE YELLOW; GLUCOSE,URINE NEG (NEG)
[2019-07-24 18:04] LABS: BACTERIA,URINE 0 /HPF (0-FEW); BILIRUBIN,URINE NEG (NEG); NITRITE,URINE NEG (NEG); RBC,URINE OCC /HPF (0-2); SQUAMOUS EPITHELIAL CELL,UR OCC /LPF; UROBILINOGEN,URINE 0.2 mg/dL (0.2 mg/dL); WBC,URINE OCC /HPF (0-4)
--- NOTE | 2019-07-24 18:28 | NUR ---
NSG NOTE; ADMISSION ADMIT TO ROOM 107 AT 1823 VIA CART FROM ED ACCOMP BY EMS PERSONNEL PT HAD TWO FALLS TODAY RESULTING IN TWO FRACTURES
[2019-07-24 19:15] VITALS: BP 180/53
[2019-07-24 23:42] VITALS: BP 167/68
[2019-07-25] MEDS: DOCUSATE SODIUM 100 MG CAPSULE PO SCH ×3 (00:14→20:54)
[2019-07-25] MEDS: OXYBUTYNIN CHLORIDE 5 MG TABLET PO SCH ×4 (00:14→20:54)
[2019-07-25] MEDS: ZOLPIDEM 5 MG TABLET. PO PRN ×2 (00:14→20:54)
[2019-07-25] MEDS: amLODIPine BESYLATE 10 MG TABLET PO SCH ×2 (00:14→20:54)
[2019-07-25] MEDS: ASCORBIC ACID 500 MG TABLET PO SCH ×2 (00:14→20:54)
[2019-07-25 05:57] VITALS: BP 123/57
--- NOTE | 2019-07-25 06:17 | NUR ---
Pt slept soundly through the night with exception to getting up for urination. Pt expresses concern about taking Fentanyl for pain since she knows people who have struggled with pain medication addictions. Pt is using a quad cane to steady herself and pivot to the BSC while minimizing/eliminating any weight bearing on the left leg to as little as possible.
[2019-07-25] MEDS: glipiZIDE 5 MG TABLET PO SCH ×2 (07:57→20:57)
[2019-07-25] MEDS: MULTIVITAMIN I-VITE TABLET. PO SCH (07:57)
[2019-07-25] MEDS: FUROSEMIDE 40 MG TABLET PO SCH (07:57)
[2019-07-25] MEDS: cycloSPORINE 0.05% OPTH 1 DROP DROPERETTE OU SCH ×2 (07:57→20:53)
[2019-07-25] MEDS: PANTOPRAZOLE 40 MG TABLET. PO SCH (07:57)
[2019-07-25] MEDS: CHOLECALCIFEROL (VITAMIN D3) 1,000 UNIT TABLET PO SCH (07:57)
[2019-07-25] MEDS: LINAGLIPTIN 5 MG TABLET PO SCH (07:57)
[2019-07-25] MEDS: CYANOCOBALAMIN (VITAMIN B-12) 1,000 MCG TABLET. PO SCH (07:58)
[2019-07-25] MEDS: GABAPENTIN 300 MG CAPSULE. PO SCH ×2 (07:58→20:53)
[2019-07-25] MEDS: CITALOPRAM 20 MG TABLET. PO SCH (07:58)
[2019-07-25] MEDS: CELECOXIB 100 MG CAPSULE PO SCH (07:58)
[2019-07-25] MEDS: CARVEDILOL 12.5 MG TABLET PO SCH ×2 (07:59→17:02)
[2019-07-25] MEDS: ISOSORBIDE MONONITRATE ER 30 MG TAB.ER.24H PO SCH (07:59)
[2019-07-25] MEDS: POTASSIUM CHLORIDE 10 MEQ TABLET.ER. PO SCH ×2 (08:00→20:57)
[2019-07-25] MEDS ORDERED: CARVEDILOL 12.5 MG TABLET PO SCH (09:00)
[2019-07-25] MEDS ORDERED: LEVOTHYROXINE 75 MCG TABLET PO SCH (09:00)
[2019-07-25 10:15] VITALS: BP 144/52
[2019-07-25] MEDS ORDERED: traMADol 50 MG TABLET PO PRN (10:30)
[2019-07-25] MEDS: traMADol 50 MG TABLET PO PRN (10:32)
--- NOTE | 2019-07-25 11:53 | NUR ---
Patient swabbed for COVID 19 for placement at facility.
[2019-07-25 14:27] VITALS: BP 161/70
[2019-07-25 19:35] VITALS: BP 168/73
[2019-07-25] MEDS: ATORVASTATIN CALCIUM 20 MG TABLET PO SCH (20:53)
--- NOTE | 2019-07-25 23:55 | HP ---
ADMIT DATE: 07/24/2019 HISTORY OF PRESENT ILLNESS: An 83-year-old female patient apparently fell at home. She had been taken down to [facility] where an x-ray apparently showed a comminuted fracture of the right humeral head. The patient was placed in a shoulder immobilizer and was discharged home. However, the patient when she got home noted that she had severe pain in her left knee and x-rays were finally taken here at our institution and noted that she had another fracture there. The patient was unable to mobilize and as a result of this the patient was hospitalized for further evaluation of her multiple falls, multiple fractures and further evaluation. PAST MEDICAL HISTORY: Recent cardiac catheterization unremarkable, tonsillectomy, lightheadedness, heart attack, cardiac catheterization here recently, hypercholesterolemia, pneumonia, sleep apnea, obesity, hysterectomy, urinary tract infection, urinary retention, orthopedic surgery, wrist and ankle; depression, medical symptoms of broken ribs, skin cancer, Influenza; pneumococcal up-to-date. She has had a history of MRSA, bladder sling. FAMILY HISTORY: Mother had hypertension and the like. ALLERGIES: ATENOLOL, CODEINE, LISINOPRIL AND MORPHINE. SOCIAL HISTORY: Denies smoking, alcohol or drug use. She is a full code. REVIEW OF SYSTEMS: Outside of the severe pain to her right shoulder area and to her left knee, the patient otherwise is in reasonably good health. She denies chest pain, abdominal pain, nausea, vomiting, headaches, visual change, blurred vision, double vision. Denies any recent weight loss, weight gain, change in bowel. Denies any change in mental status for that matter. PHYSICAL EXAMINATION: GENERAL: This is a very pleasant white female, in no apparent distress. VITAL SIGNS: Blood pressure 160/70, respiratory rate 20, pulse 60, afebrile. HEENT: The patient's head was atraumatic, normocephalic. Eyes: PERRLA without jaundice. Speech is fluent, spontaneous, and very difficult to ____. NECK: Fairly supple, but she does have sling on to her shoulder. LUNGS: The patient's lungs were diminished, but clear. CARDIOVASCULAR: Regular sinus rhythm, S1, S2, without murmur, rub, or heart sound. ABDOMEN: Soft, nontender, no rebound or guarding. Positive bowel sounds, no hepatosplenomegaly. EXTREMITIES: The patient's left knee markedly tender to touch and in a brace there. NEUROLOGIC: As noted, the patient was alert and oriented. Speech is fluent, spontaneous, appropriate. Cranial nerves 2-12 are grossly intact. ____ Jessica, atorvastatin, omega 3, isosorbide, carvedilol, Norvasc, Celebrex, gabapentin, Lexapro, glipizide, levothyroxine, vitamin D, ____. The patient otherwise will be monitored carefully. Continue with PT, OT. White count slightly elevated, probably from her falls. Chemistries were unremarkable. Does have a slight elevated blood sugar, creatinine of 1.3. Urine was unremarkable. The patient will continue to be monitored carefully, make further evaluation and she also had a head CT ____ knee x-ray showed fracture and apparently no obvious other major problems there. IMPRESSION: Multiple falls with fracture to the left knee, fracture to the right shoulder. Continue to monitor with PT and OT. SHANTHI LEHMAN MD DR: EDE/pia JOB#: [id number] / [id number]
--- NOTE | 2019-07-26 05:00 | NUR ---
Pt slept soundly all night. She got up very little to urinate. Pt expressed early in the shift she did not want pain medication through the night and would let us know if she changes her mind. She prefers her next pain pill before she gets up to bathe in the morning. Will continue to monitor.
[2019-07-26] MEDS: LEVOTHYROXINE 75 MCG TABLET PO SCH (05:50)
[2019-07-26 06:32] LABS: CALCIUM 8.6 mg/dL (8.5-10.1); CREATININE 1.2 mg/dL (0.6-1.0); GFR 42.7; MAGNESIUM 2.5 mg/dL (1.8-2.4); POTASSIUM 4.3 mmol/L (3.5-5.1)
[2019-07-26 06:42] VITALS: BP 171/72
[2019-07-26] MEDS: glipiZIDE 5 MG TABLET PO SCH ×2 (07:51→21:13)
[2019-07-26] MEDS: POTASSIUM CHLORIDE 10 MEQ TABLET.ER. PO SCH ×2 (07:52→21:14)
[2019-07-26] MEDS: DOCUSATE SODIUM 100 MG CAPSULE PO SCH ×2 (07:52→21:13)
[2019-07-26] MEDS: LINAGLIPTIN 5 MG TABLET PO SCH (07:52)
[2019-07-26] MEDS: GABAPENTIN 300 MG CAPSULE. PO SCH ×2 (07:52→21:13)
[2019-07-26] MEDS: CHOLECALCIFEROL (VITAMIN D3) 1,000 UNIT TABLET PO SCH (07:52)
[2019-07-26] MEDS: PANTOPRAZOLE 40 MG TABLET. PO SCH (07:53)
[2019-07-26] MEDS: FUROSEMIDE 40 MG TABLET PO SCH (07:53)
[2019-07-26] MEDS: CYANOCOBALAMIN (VITAMIN B-12) 1,000 MCG TABLET. PO SCH (07:53)
[2019-07-26] MEDS: CARVEDILOL 12.5 MG TABLET PO SCH ×2 (07:53→19:59)
[2019-07-26] MEDS: OXYBUTYNIN CHLORIDE 5 MG TABLET PO SCH ×3 (07:53→21:13)
[2019-07-26] MEDS: CITALOPRAM 20 MG TABLET. PO SCH (07:53)
[2019-07-26] MEDS: MULTIVITAMIN I-VITE TABLET. PO SCH (07:53)
[2019-07-26] MEDS: ISOSORBIDE MONONITRATE ER 30 MG TAB.ER.24H PO SCH (07:54)
[2019-07-26] MEDS: CELECOXIB 100 MG CAPSULE PO SCH (07:54)
[2019-07-26] MEDS: cycloSPORINE 0.05% OPTH 1 DROP DROPERETTE OU SCH ×2 (09:00→21:14)
[2019-07-26] MEDS ORDERED: CARVEDILOL 12.5 MG TABLET PO SCH (09:15)
[2019-07-26 10:22] VITALS: BP 112/51
[2019-07-26] MEDS: traMADol 50 MG TABLET PO PRN ×2 (12:36→21:13)
[2019-07-26 15:10] VITALS: BP 132/46
[2019-07-26 19:55] VITALS: BP 177/64
[2019-07-26] MEDS: ASCORBIC ACID 500 MG TABLET PO SCH (21:13)
[2019-07-26] MEDS: ATORVASTATIN CALCIUM 20 MG TABLET PO SCH (21:13)
[2019-07-26] MEDS: APIXABAN 2.5 MG TABLET PO SCH (21:13)
[2019-07-26] MEDS: ZOLPIDEM 5 MG TABLET. PO PRN (21:13)
[2019-07-26] MEDS: amLODIPine BESYLATE 10 MG TABLET PO SCH (21:14)
--- NOTE | 2019-07-26 21:31 | PN ---
DATE: SUBJECTIVE: An 83-year-old female fell and fractured her right humerus, compound fracture; also compound fracture of her left kneecap. In any case, the patient is making slow, but steady progress. Diabetes is being checked in the usual fashion. COVID-19 test is still pending, but it is not relay to the doctor unfortunately. OBJECTIVE: GENERAL: In any case, the patient is alert and oriented. LUNGS: Diminished, but clear. CARDIOVASCULAR: Regular sinus rhythm. ABDOMEN: Soft, nontender. EXTREMITIES: No clubbing, cyanosis or edema. NEUROLOGIC: Intact. PLAN: We will go ahead and continue to monitor the patient accordingly and continue with PT/OT. IMPRESSION: Fracture of the right humerus, fracture of the left patella, fall at home. SHANTHI LEHMAN MD DR: DEE/pia JOB#: [id number] / [id number]
[2019-07-26 22:27] VITALS: BP 154/63
--- NOTE | 2019-07-26 22:32 | NUR ---
Pt lying in bed awake at shift change. Pt calm, pleasant, and interactive. Pt cooperative and compliant. PRN Ambien administered for sleep and PRN Tramadol administered for c/o pain rated 5/10.
[2019-07-27] MEDS: LEVOTHYROXINE 75 MCG TABLET PO SCH (05:31)
[2019-07-27 06:07] VITALS: BP 151/69
[2019-07-27 07:54] LABS: BASO # 0.1 x10^3/uL (0.0-0.2); BASO % 1 % (0-3); EOS # 0.3 x10^3/uL (0.0-0.7); EOS % 4 % (0-3); HEMATOCRIT 28.8 % (36.0-47.0); HEMOGLOBIN 9.7 g/dL (12.0-15.5); LYMPH # 1.3 x10^3/uL (1.0-4.8); LYMPH % 17 % (24-48); MEAN CORPUSCULAR HEMOGLOBIN 31 pg (25-35); MEAN CORPUSCULAR HGB CONC 34 g/dL (31-37); MEAN CORPUSCULAR VOLUME 93 fL (79-100); MONO # 0.7 x10^3/uL (0.0-1.1); MONO % 9 % (0-9); NEUT # 5.4 x10^3uL (1.8-7.7); NEUT % 69 % (31-73); PLATELET COUNT 132 x10^3/uL (140-400); RED BLOOD COUNT 3.09 x10^6/uL (3.50-5.40); WHITE BLOOD COUNT 7.8 x10^3/uL (4.0-11.0)
[2019-07-27 08:07] LABS: CALCIUM 8.4 mg/dL (8.5-10.1); CREATININE 1.1 mg/dL (0.6-1.0); GFR 47.2; POTASSIUM 4.1 mmol/L (3.5-5.1)
[2019-07-27] MEDS: ISOSORBIDE MONONITRATE ER 30 MG TAB.ER.24H PO SCH (08:12)
[2019-07-27] MEDS: CITALOPRAM 20 MG TABLET. PO SCH (08:12)
[2019-07-27] MEDS: DOCUSATE SODIUM 100 MG CAPSULE PO SCH (08:12)
[2019-07-27] MEDS: glipiZIDE 5 MG TABLET PO SCH (08:12)
[2019-07-27] MEDS: traMADol 50 MG TABLET PO PRN (08:12)
[2019-07-27] MEDS: LINAGLIPTIN 5 MG TABLET PO SCH (08:12)
[2019-07-27 08:13] VITALS: BP 151/69
[2019-07-27] MEDS: FUROSEMIDE 40 MG TABLET PO SCH (08:13)
[2019-07-27] MEDS: CELECOXIB 100 MG CAPSULE PO SCH (08:13)
[2019-07-27] MEDS: CHOLECALCIFEROL (VITAMIN D3) 1,000 UNIT TABLET PO SCH (08:13)
[2019-07-27] MEDS: OXYBUTYNIN CHLORIDE 5 MG TABLET PO SCH (08:13)
[2019-07-27] MEDS: MULTIVITAMIN I-VITE TABLET. PO SCH (08:13)
[2019-07-27] MEDS: CARVEDILOL 12.5 MG TABLET PO SCH (08:13)
[2019-07-27] MEDS: POTASSIUM CHLORIDE 10 MEQ TABLET.ER. PO SCH ×2 (08:13→08:48)
[2019-07-27] MEDS: APIXABAN 2.5 MG TABLET PO SCH (08:14)
[2019-07-27] MEDS: PANTOPRAZOLE 40 MG TABLET. PO SCH (08:14)
[2019-07-27] MEDS: cycloSPORINE 0.05% OPTH 1 DROP DROPERETTE OU SCH (08:14)
[2019-07-27] MEDS: CYANOCOBALAMIN (VITAMIN B-12) 1,000 MCG TABLET. PO SCH (08:14)
[2019-07-27] MEDS: GABAPENTIN 300 MG CAPSULE. PO SCH (08:14)
--- NOTE | 2019-07-27 09:28 | DS ---
DATE OF DISCHARGE: HOSPITAL COURSE: This is a very pleasant 83-year-old female, unfortunately fell at home. She says she tripped over something, ended up fracturing her right humerus and I believe it was a complete fracture, comminuted fracture of the right humerus. She was placed into a shoulder splint and sent home. Her knee began to bother her, came in to [place]'s ER. The patient's x-ray of her left knee demonstrated an intramedullary edwina and screw and in other words there could have been a possible fracture to the kneecap. As a result of her weakness and her recurrent falling, the patient was admitted to the hospital for further evaluation, PT, OT. Blood pressure 150/70, respiratory rate 20, pulse 60, afebrile. The patient's labs show a white count of 7.8, hemoglobin 9.7 and ____ 28, platelets slightly low at 132. Her COVID-19 was negative. Sodium and potassium 138 and 4.1, BUN and creatinine 26 and 1.1. Her blood sugars were also being monitored carefully. She will be discharged to the [facility] facility for which she has requested compression fracture, comminuted fracture of the head of the right humerus, fracture of the left patella, fall at home, history of essential hypertension, type 2 diabetes. Continue with PT, OT at that facility under the splint and care. She will be on a diabetic diet. SHANTHI LEHMAN MD DR: EDE/pia JOB#: [id number] / [id number]
[2019-07-27] MEDS ORDERED: TRAM50TA PO (10:02)
[2019-07-27] MEDS ORDERED: APIX2.5T PO (10:02)
--- NOTE | 2019-07-27 10:05 | DISCH ---
DISCHARGE ORDERS DISCHARGE DATE: July 27, 2019 FINAL DIAGNOSIS Right Humeral Head Fracture and Left Patela Fracture CONDITION AT DISCHARGE: Stable Code Status: Full SNF STAY <30 DAYS: Yes HOSPICE: No HOSPICE EVALUATE & TREAT: No ADMIT TO LTAC: No POST DISCHARGE ORDERS: ACTIVITY ORDERS: Activity as tolerated WEIGHT BEARING STATUS: Full weight bearing, As tolerated DIET AFTER DISCHARGE: ADA CHECKS AFTER DISCHARGE: CHECKS AFTER DISCHARGE: Check blood sugar, ac/hs FOLLOW-UP: PHYSICIAN FOLLOW-UP: Follow with Dr. Guerrero for consult TREATMENT/EQUIPMENT ORDERS: ADAPTIVE EQUIPMENT NEEDED: None DISCHARGE MEDICATIONS: Home Meds Reported Medications Cyclosporine (RESTASIS) 1 Each Droperette, 1 DROP EACHEYE BID for ., #60 VIAL 3 Refills 07/20/19 Carvedilol (CARVEDILOL ) 12.5 Mg Tablet, 12.5 MG PO BIDWMEALS for CARDIAC, TAB 07/20/19 Isosorbide Mononitrate (ISOSORBIDE MONONITRATE ER) 30 Mg Tab.er.24h, 1 TAB PO DAILY for ., #30 TAB 5 Refills 07/20/19 Zolpidem Tartrate (AMBIEN) 10 Mg Tablet, 10 MG PO PRN QHS PRN for INSOMNIA, TAB 0 Refills 07/20/19 Pantoprazole Sodium (PANTOPRAZOLE SODIUM) 40 Mg Tablet.dr, 1 TAB PO DAILY for ., #30 TAB 3 Refills 07/20/19 Levothyroxine Sodium (SYNTHROID) 75 Mcg Tablet, 1 TAB PO DAILY for ., #30 TAB 5 Refills 07/20/19 Escitalopram Oxalate (ESCITALOPRAM OXALATE) 20 Mg Tablet, 1 TAB PO DAILY for ., #30 TAB 5 Refills 07/20/19 Atorvastatin Calcium (ATORVASTATIN CALCIUM) 40 Mg Tablet, 1 TAB PO DAILY for HLD, #30 TAB 5 Refills 07/20/19 Tolterodine Tartrate (DETROL LA) 4 Mg Cap.er.24h, 1 CAP PO HS, CAP for urinary symptoms 07/23/14 Multivitamin (MULTI-VITAMIN DAILY) 1 Each Tablet, 1 EACH PO DAILY supplement last dose: 08/05 @ 8:10 AM next dose: 08/06 AM 07/23/14 Sitagliptin Phosphate (JANUVIA) 100 Mg Tablet, 1 TAB PO DAILY, TAB for high blood sugar last dose: 08/05 @ 8:10 AM next dose: 08/0607/23/14 Potassium Chloride (POTASSIUM CHLORIDE) 10 Meq Tablet.er, 1 TAB PO BID, TAB supplement last dose: 08/05 @ 8:10 AM next dose: 08/0507/23/14 [place]-3 Fatty Acids/Fish Oil (FISH OIL 1,000 MG CAPSULE) 1 Each Capsule, 1 EACH PO DAILY supplement not given this admission 07/23/14 Glipizide (GLIPIZIDE) 5 Mg Tablet, 1 TAB PO BID, TAB for high blood sugar last dose: 08/05 @ 5:55 AM next dose: 08/0507/23/14 Gabapentin (GABAPENTIN ) 300 Mg Capsule, 1 CAP PO BID, CAP for neuropathy last dose: 08/05 @ 8:10 AM next dose: 08/0507/23/14 Furosemide (FUROSEMIDE) 40 Mg Tablet, 1 TAB PO DAILY, TAB for fluid retention last dose: 08/05 @ 8:10 AM next dose: 08/0607/23/14 Alendronate Sodium (FOSAMAX) 70 Mg Tablet, 1 TAB PO WEEKLY, TAB for osteoporosis not given this admission 07/23/14 Fexofenadine Hcl (FEXOFENADINE HCL) 180 Mg Tablet, 1 TAB PO DAILY, TAB for allergies not given this admission 07/23/14 Docusate Calcium (SURFAK) 240 Mg Capsule, 240 MG PO BID stool softener last dose: 08/05 @ 8:10 AM next dose: 08/0507/23/14 Cyanocobalamin (Vitamin B-12) (VITAMIN B-12) 1,000 Mcg Tablet, 0.5 TAB PO DAILY, TAB supplement last dose: 08/05 @ 8:10 AM next dose: 08/0607/23/14 Cholecalciferol (Vitamin D3) (VITAMIN D3) 1,000 Unit Tablet, 1 TAB PO DAILY, TAB supplement last dose: 08/05 @ 8:10 AM next dose: 08/0607/23/14 Celecoxib (CELEBREX) 200 Mg Capsule, 1 CAP PO DAILY, CAP for arthritis last dose: 08/05 @ 8:10 AM next dose: 08/0607/23/14 Carvedilol (COREG ) 12.5 Mg Tablet, 1 TAB PO BID, TAB for high blood pressure last dose: 08/05 @ 8:10 AM next dose: 08/05 07/23/14 Ascorbic Acid (VITAMIN C) 500 Mg Tablet, 500 MG PO HS supplement not given this admission 07/23/14 Amlodipine Besylate (NORVASC) 10 Mg Tablet, 1 TAB PO HS, TAB for high blood pressure last dose: 08/04 @ 9:22 PM next dose: 08/05 @ bedtime 07/23/14 Discontinued Reported Medications Levothyroxine Sodium (SYNTHROID) 50 Mcg Tablet, 1 TAB PO DAILY06, TAB for low thyroid not given this admission 07/23/14 Omeprazole (OMEPRAZOLE) 20 Mg Tablet.dr, 1 TAB PO BID, TAB for acid reflux gave zyrtec instead while admitted Zyrtec last dose: 08/05 @ 8:10 AM next dose: 08/05 PM 07/23/14 Citalopram Hydrobromide (CITALOPRAM HBR) 10 Mg Tablet, 1 TAB PO DAILY, TAB for depression last dose: 08/05 @ 8:10 AM next dose: 08/06 AM 07/23/14 SHANTHI LEHMAN MD July 27, 2019 10:05
--- NOTE | 2019-07-27 10:39 | NUR ---
NURSING NOTE DISCHARGE PT DISCHARGED TO [facility] AT 1040 VIA WHEELCHAIR ACCOMPANIED BY DAUGHTER. REPORT CALLED TO [facility] NURSE. COPY OF PAPERWORK SENT WITH PT. NO COMPLICATIONS. SCRIPT FOR PAIN MEDICATION SENT IN PACKET. JULIO BROWN.
--- NOTE | 2019-07-27 10:50 | NUR ---
NURSING NOTE REPORT CALLED TO [facility].
[2019-07-31] MEDS ORDERED: NON FORMULARY ITEM (Alendronate Sodium (Fosamax) 1 TAB) PO SCH (09:00)
== END 2019-07-27 10:50 | DRG 563 ==
LOC: ER 15:39 → 1 SOUTH 17:29
PROVIDERS: ADMIT Family Medicine; ATTEND Family Medicine
PROC: 2W3AX1Z Immobilization of Right Upper Arm using Splint (ICD-10-PCS; principal; 2019-07-24)
DX: S42.291A Other displaced fracture of upper end of right humerus, initial encounter for closed fracture (principal); S82.002A Unspecified fracture of left patella, initial encounter for closed fracture; E11.9 Type 2 diabetes mellitus without complications; E78.00 Pure hypercholesterolemia, unspecified; I10 Essential (primary) hypertension; I25.2 Old myocardial infarction; J44.9 Chronic obstructive pulmonary disease, unspecified; R29.6 Repeated falls; W18.30XA Fall on same level, unspecified, initial encounter; Y92.009 Unspecified place in unspecified non-institutional (private) residence as the place of occurrence of the external cause; Z82.49 Family history of ischemic heart disease and other diseases of the circulatory system; Z86.14 Personal history of Methicillin resistant Staphylococcus aureus infection; Z90.710 Acquired absence of both cervix and uterus; E66.9 Obesity, unspecified; F32.9 Major depressive disorder, single episode, unspecified; Z79.899 Other long term (current) drug therapy; Z88.8 Allergy status to other drugs, medicaments and biological substances; Z20.828 Contact with and (suspected) exposure to other viral communicable diseases
CPT/HCPCS: 29505; 36415; 70450; 71045; 73562; 73700; 80048; 80053; 80061; 81001; 82550; 82947; 83735; 84443; 84484; 85025; 85610; 87635; 93005; G0378; G0379; J3010; 97110; 99285-25

== ENCOUNTER 2019-10-13 07:14 | Emergency (ER) | payer MEDICARE, OTHER ==
[~2019-10-13] VITALS: Ht 152.4 cm; Wt 89.0 kg
[~2019-10-13 07:14] MED LIST changes: +APIX2.5T PO; +PANT40TA5 PO; -PANT40TA6 PO
[2019-10-13 07:28] VITALS: BP 125/66
--- NOTE | 2019-10-13 07:38 | PHYS DOC ---
Past History Past Medical History: COPD, Diabetes, Heart Disease, Hypertension, MD Past Surgical History: Angioplasty Smoking: Non-smoker Alcohol Use: Occasionally Adult General Chief Complaint Chief Complaint: HEAD INJURY/TRAUMA HPI HPI Patient is a 84-year-old female who presents status post fall Onset was just prior to arrival, suffered a mechanical fall at home in kitchen when she tripped over kitchen mat, did not brace her fall due to fear of reinjuring recently broken shoulder, hit head directly on right side without loss of consciousness. This was unwitnessed Patient reports a dull headache and mild neck tenderness at this time, has not taken anything prior to arrival. Admits history of being on Eliquis but this was stopped greater than 1 month ago, currently takes 81 mg aspirin daily Has been able to ambulate since accident, denies any focal motor/sensory/neurological deficits or vision changes Review of Systems Review of Systems Fourteen body systems of review of systems have been reviewed. See HPI for pertinent positives and negative responses, other garcia all other systems are negative, non-pertinent or non-contributory Allergies Allergies Allergies Coded Allergies Type Severity Reaction Last Updated Verified atenolol Allergy Intermediate 08/05/14 Yes codeine Allergy Intermediate Unknown 07/23/14 Yes lisinopril Allergy Intermediate 07/27/14 No morphine Allergy Intermediate Nausea and Vomiting 07/23/14 Yes Physical Exam Physical Exam Constitutional: Pt is oriented to person, place, and time. Pt appears well- developed and well-nourished. HENT: Head: Normocephalic, 1 cm superficial laceration to right anterior frontal lobe, hemostasis achieved prior to arrival Mouth/Throat: Oropharynx is clear and moist. No hematomas or abrasions to face or scalp OP clear, no blood, no malocclusion, dentition intact Nares clear, no nasal septal hematoma TMs clear, no hemotympanum Midface stable Eyes: Conjunctivae and EOM are normal. Pupils are equal, round, and reactive to light. Neck: C-spine midline but reports generalized tenderness, no step-offs Cardiovascular: Normal rate, regular rhythm and normal heart sounds. Pulmonary/Chest: Effort normal and breath sounds normal. No respiratory distress. He has no wheezes. CTA bilaterally Abdominal: Soft. Pt exhibits no distension. There is no tenderness. Musculoskeletal: No bony tenderness to extremities, no deformities, full ROM extremities Chest wall stable Pelvis stable and non-tender No vertebral TTP and spine without stepoffs Neurological: Pt is alert and oriented to person, place, and time. Moving all extremities willfully, able to wiggle all fingers and toes Negative Romberg, unremarkable gait, unremarkable [id number] Alert and oriented x 3 Sensation grossly intact Skin: Skin is warm and dry. No abrasions, no lacerations Psychiatric: Behavior is appropriate for situation Nursing note and vitals reviewed. EKG EKG [] Radiology/Procedures Radiology/Procedures PROCEDURE: CT HEAD AND CERVICAL SPINE WO CT HEAD AND CERVICAL SPINE WO Date: 10/13/2019 7:34 AM Clinical Indication: fall, hit head, no LOC Comparison: 07/24/2019. Technique: 5 mm axial tomographic images were obtained of the head without contrast. These were viewed on brain and bone windows. Noncontrast CT of the cervical spine was performed. Sagittal and coronal reformats were performed and evaluated. One or more of the following dose reduction techniques were utilized: Automated exposure control (AEC), Adjustment of mA and/or kV according to patient size, Use of iterative reconstruction technique such as ASiR, CT scan done according to ALARA and image gently/image wisely HEAD FINDINGS: Mild generalized cerebral and cerebellar volume loss. Mild nonspecific periventricular hypoattenuation, most commonly seen with chronic small vessel ischemic disease. No intra- or extra-axial mass or fluid collection. No acute hemorrhage. The ventricles are normal in size, shape, and morphology. The bowens-white matter junction is normal. The basilar cisterns are patent. The visualized paranasal sinuses are normal. The visualized portions of the orbits and globes are normal. The mastoid air cells are clear. No aggressive osseous lesion or fracture. CERVICAL SPINE FINDINGS: The cervical spine is normally aligned. No acute fracture. No aggressive lytic or blastic osseous lesions. Multilevel degenerative disc space height loss, worst and severe at C4-5, C5-6, and C6-7. Multilevel mild spinal canal stenosis secondary to disc protrusions and marginal osteophytes. Multilevel mild and moderate neuroforaminal narrowing secondary to uncovertebral arthrosis. Multilevel mild facet arthrosis. The thyroid gland is normal. No cervical lymphadenopathy. Bilateral carotid atherosclerosis. The visualized aerodigestive tract is normal. The visualized portions of the lungs are clear. IMPRESSION: 1. No acute intracranial process. 2. No acute cervical spine fracture. Electronically signed by: Jesse Lainez MD (10/13/2019 8:20 AM) [id number] Course & Med Decision Making Course & Med Decision Making Patient seen on immediate ED arrival by myself Vital signs obtained and grossly unremarkable Comprehensive history, physical exam, and subsequent imaging performed ED course grossly unremarkable. Patient headache resolved with Tylenol. No focal neurological deficits appreciated. Patient at baseline functional status and requesting to walk out to go home after mechanical fall suffered from tripping over kitchen rug. She reports that her daughters threw the rug away after she fell Patient's mild laceration on right forehead glued together with Dermabond, no complications reported. Educated on good wound hygiene with good understanding Strict return precautions discussed with good understanding by patient, all questions and concerns addressed prior to ER departure Advised patient follow-up with her PCP in upcoming 1 to 7 days for outpatient follow-up Dragon Disclaimer Dragon Disclaimer This electronic medical record was generated, in whole or in part, using a voice recognition dictation system. Laceration Repair Lac Repair Indication: Laceration right 1 cm simple laceration repair of 1 cm horizontal superficial lack to right frontal lobe Procedure: The patient was placed in seated position, no anesthetics were required. The area was then irrigated and cleansed with tap water copiously. The laceration was approximated together and Dermabond was applied. The wound area was then left open with mild petroleum-based jelly placed on top. Total repaired wound length: 1 cm Other Items: None Complications: Patient tolerated the procedure well without any immediate complications Departure Departure: Impression: Primary Impression: Fall Additional Impression: Laceration of forehead without complication Disposition: 01 HOME/RESIDENCE PRIOR TO ADM Condition: STABLE Referrals: SHANTHI LEHMAN MD (PCP) Patient Instructions: Fall Prevention and Home Safety, Laceration Care, Adult Additional Instructions: As discussed prior to ER departure, please follow-up with your PCP in upcoming 1 to 7 days for ER follow-up visit Continue supportive care practices for your body aches and pains status post fall utilizing NSAIDs/Tylenol for pain Justification of Admission: Justification of Admission: Justification of Admission Dx: N/A Problem Qualifiers OMAR LYNN DO Oct 13, 2019 07:38
[2019-10-13] MEDS ORDERED: ACETAMINOPHEN 500 MG TABLET PO ONE (07:45)
--- NOTE | 2019-10-13 08:22 | RAD ---
CT HEAD AND CERVICAL SPINE WO Date: 10/13/2019 7:34 AM Clinical Indication: fall, hit head, no LOC Comparison: 07/24/2019. Technique: 5 mm axial tomographic images were obtained of the head without contrast. These were viewed on brain and bone windows. Noncontrast CT of the cervical spine was performed. Sagittal and coronal reformats were performed and evaluated. One or more of the following dose reduction techniques were utilized: Automated exposure control (AEC), Adjustment of mA and/or kV according to patient size, Use of iterative reconstruction technique such as ASiR, CT scan done according to ALARA and image gently/image wisely HEAD FINDINGS: Mild generalized cerebral and cerebellar volume loss. Mild nonspecific periventricular hypoattenuation, most commonly seen with chronic small vessel ischemic disease. No intra- or extra-axial mass or fluid collection. No acute hemorrhage. The ventricles are normal in size, shape, and morphology. The bowens-white matter junction is normal. The basilar cisterns are patent. The visualized paranasal sinuses are normal. The visualized portions of the orbits and globes are normal. The mastoid air cells are clear. No aggressive osseous lesion or fracture. CERVICAL SPINE FINDINGS: The cervical spine is normally aligned. No acute fracture. No aggressive lytic or blastic osseous lesions. Multilevel degenerative disc space height loss, worst and severe at C4-5, C5-6, and C6-7. Multilevel mild spinal canal stenosis secondary to disc protrusions and marginal osteophytes. Multilevel mild and moderate neuroforaminal narrowing secondary to uncovertebral arthrosis. Multilevel mild facet arthrosis. The thyroid gland is normal. No cervical lymphadenopathy. Bilateral carotid atherosclerosis. The visualized aerodigestive tract is normal. The visualized portions of the lungs are clear. IMPRESSION: 1. No acute intracranial process. 2. No acute cervical spine fracture. Electronically signed by: Jesse Lainez MD (10/13/2019 8:20 AM) [id number]
[2019-10-13] MEDS ORDERED: ALBU2.5V8 IH (11:52)
[2019-10-13] MEDS ORDERED: CALC-614 PO (11:52)
[2019-10-13] MEDS ORDERED: NITR0.4T24 SL (11:52)
[2019-10-13] MEDS ORDERED: DOCU-109 PO (11:52)
[2019-10-13] MEDS ORDERED: ASPI-630 PO (11:52)
== END 2019-10-13 08:54 | disposition home or self-care (01) ==
LOC: ER 07:14
DX: S01.81XA Laceration without foreign body of other part of head, initial encounter (principal); J44.9 Chronic obstructive pulmonary disease, unspecified; E11.9 Type 2 diabetes mellitus without complications; I11.9 Hypertensive heart disease without heart failure; I25.2 Old myocardial infarction; Z88.8 Allergy status to other drugs, medicaments and biological substances; Z88.5 Allergy status to narcotic agent; W18.09XA Striking against other object with subsequent fall, initial encounter; Y93.89 Activity, other specified; Y92.89 Other specified places as the place of occurrence of the external cause; Y99.8 Other external cause status
CPT/HCPCS: 12011; 70450; 72125; 99285-25

== ENCOUNTER 2019-10-13 09:05 | Observation (INO) | payer MEDICARE, OTHER ==
[~2019-10-13] VITALS: Ht 152.4 cm; Wt 84.5 kg
[~2019-10-13 09:05] MED LIST changes: -PANT40TA5 PO; +PANT40TA6 PO
--- NOTE | 2019-10-13 09:30 | NUR ---
84 y/o female, direct admit for Eddy, pt had a fall this morning at home, slipped on a rug that was in the kitchen, and hit right side of head. Went to ED, laceration on head was glued and pt was discharged. pt oriented to room and call light within reach, put into gown and placed non-slip socks on. verbalized understanding to orientation. pt belongings (purse, cell phone) in room. med list verified with patient. all questions asked and answered. Dagmar KIM
[2019-10-13 10:49] VITALS: BP 180/70
[2019-10-13] MEDS ORDERED: ONDANSETRON PF 4 MG/2 ML VIAL. IVP PRN (11:00)
[2019-10-13 11:13] LABS: BASO # 0.1 x10^3/uL (0.0-0.2); BASO % 1 % (0-3); EOS # 0.2 x10^3/uL (0.0-0.7); EOS % 3 % (0-3); HEMOGLOBIN 10.9 g/dL (12.0-15.5); LYMPH # 1.9 x10^3/uL (1.0-4.8); LYMPH % 25 % (24-48); MEAN CORPUSCULAR HEMOGLOBIN 30 pg (25-35); MEAN CORPUSCULAR HGB CONC 33 g/dL (31-37); MEAN CORPUSCULAR VOLUME 92 fL (79-100); MONO # 0.7 x10^3/uL (0.0-1.1); MONO % 9 % (0-9); NEUT # 4.8 x10^3uL (1.8-7.7); NEUT % 62 % (31-73); PLATELET COUNT 170 x10^3/uL (140-400); RED CELL DISTRIBUTION WIDTH 15.2 % (11.5-14.5); WHITE BLOOD COUNT 7.7 x10^3/uL (4.0-11.0)
[2019-10-13 11:29] LABS: ALBUMIN 3.5 g/dL (3.4-5.0); CALCIUM 8.9 mg/dL (8.5-10.1); CREATININE 1.5 mg/dL (0.6-1.0); GFR 32.9; POTASSIUM 3.8 mmol/L (3.5-5.1); TOTAL BILIRUBIN 0.3 mg/dL (0.2-1.0); TOTAL PROTEIN 6.9 g/dL (6.4-8.2)
[2019-10-13] MEDS ORDERED: CALC-614 PO (11:52)
[2019-10-13] MEDS ORDERED: NITR0.4T24 SL (11:52)
[2019-10-13] MEDS ORDERED: ASPI-630 PO (11:52)
[2019-10-13] MEDS ORDERED: DOCU-109 PO (11:52)
[2019-10-13] MEDS ORDERED: ALBU2.5V8 IH (11:52)
--- NOTE | 2019-10-13 12:19 | NUR ---
Unable to obtain access even using ultrasound. Able to gain access, just not advance catheter then blows. Even tried foot with no success. Vascular team paged for midline. Mariama KIM
[2019-10-13 12:29] LABS: BILIRUBIN,URINE NEG (NEG); CLARITY,URINE CLEAR; COLOR,URINE YELLOW; GLUCOSE,URINE NEG (NEG); NITRITE,URINE NEG (NEG); UROBILINOGEN,URINE 0.2 mg/dL (0.2 mg/dL)
[2019-10-13 12:30] LABS: AMORPHOUS SEDIMENT,UR PRESENT /HPF; BACTERIA,URINE 0 /HPF (0-FEW); HYALINE CASTS, URINE FEW /HPF; RBC,URINE OCC /HPF (0-2); SQUAMOUS EPITHELIAL CELL,UR FEW /LPF; WBC,URINE OCC /HPF (0-4)
[2019-10-13] MEDS ORDERED: traMADol 50 MG TABLET PO PRN (13:15)
[2019-10-13] MEDS ORDERED: ALBUTEROL SULFATE 2.5 MG/3 ML NEBU. IH PRN (13:15)
[2019-10-13] MEDS ORDERED: NITROGLYCERIN SUBLINGUAL 0.4 MG BOTTLE OF 25. SL PRN (13:15)
[2019-10-13] MEDS ORDERED: ZOLPIDEM 5 MG TABLET. PO PRN (14:00)
--- NOTE | 2019-10-13 14:49 | NUR ---
Procedure: Following complete explanation of the midline procedure including the indications, risks, and potential complications, informed consent was obtained. The possibility for infection was discussed along with signs, symptoms, and prevention. All the questions were answered. IV Device Protocol was used. Written and verbal patient education was provided. Hand hygiene performed. Standardized central line checklist was utilized. The patient was placed in the supine position, the left arm was prepped with chlorhexidine and patient draped with maximum sterile barrier. 2 mL 1% lidocaine was infiltrated into the skin to provide local anesthesia. A thorough assessment of the left upper extremity completed. Using real-time ultrasound guidance and standardized micro puncture set, the baslilic vein was punctured and a peel away sheath was placed using the modified Seldinger technique. The catheter was secured using a securement device and an antimicrobial patch was applied directly on the insertion site followed by a transparent dressing. The port withdrew blood and flushed without resistance. Patient tolerated the procedure without apparent complication. a single lumen midline was place successful and uncomplicated. Gracy Hernández RN Complications:
--- NOTE | 2019-10-13 15:15 | HP ---
ADMIT DATE: 10/13/2019 HISTORY OF PRESENT ILLNESS: An 84-year-old white female in her usual good state of health until this morning when apparently was walking in her home and tripped over a rug. She was in the kitchen and she fell and hit her head directly on the right side of the skull. The patient noted to me that she was out for a time being and actually bled quite a bit in the kitchen. She was on Eliquis at that time. The patient, although she had stopped that about a month ago, she was taking aspirin. In any case, because of the probable mild concussion and the fact that she is on aspirin and 84 years old, the patient was admitted to the hospital for observation. PAST MEDICAL HISTORY: Hypertension, hyperlipidemia, hypothyroidism, degenerative arthritis, GERD, coronary artery disease, MRSA, psoriasis, COPD, fractured left ankle, type 2 diabetes. PAST SURGICAL HISTORY: The patient had surgeries of bladder repair, appendectomy, hysterectomy, lumpectomy, cardiac catheterization, laparoscope, gallbladder removal, bone spur, angioplasty, broken left clavicle, left carpal reduction, right carpal reduction, pubovaginal sling, cystourethropexy, left leg pin. FAMILY HISTORY: Father in a plane crash, mother in , otherwise unremarkable. SOCIAL HISTORY: The patient denies smoking, alcohol or drug use. Does drink some coffee. MEDICATIONS: Zocor 20, Klor-Con 10, Proventil HFA, Fosamax 70, gabapentin 300, fexofenadine 180, Norvasc 10, Lasix 40, glipizide, Januvia, Detrol LA day, Restasis, topical Voltaren, isosorbide, levothyroxine, Ambien, and Coreg 12.5 b.i.d. ALLERGIES: CODEINE, ATENOLOL, AVALIDE WITH HCTZ, LISINOPRIL CAUSES A COUGH, CIPRO AND MORPHINE STOMACH UPSET. REVIEW OF SYSTEMS: The patient complained of headache, neck ache, some mild shortness of breath. No chest pain, no nausea, vomiting, melena, hematochezia or hematemesis. No focal weakness. No blurred vision, double vision at that time. PHYSICAL EXAMINATION: GENERAL: This is a very pleasant white female. VITAL SIGNS: Blood pressure 180/70, respiratory rate 18, pulse 52 (NC), on room air 95% and afebrile. HEENT: The patient's head is traumatic. There is a laceration to the right anterior frontal lobe. Otherwise, eyes were PERRLA, EOMI. Sclerae clear. Mouth and throat were normal. NECK: Supple, no JVD or thyromegaly. LUNGS: Diminished throughout, but clear. CARDIOVASCULAR: Regular sinus rhythm, S1, S2. ABDOMEN: Soft, nontender, no rebounding or guarding. Positive bowel sounds. No hepatosplenomegaly. EXTREMITIES: No clubbing, cyanosis. Negative shake test. She has no abrasions. NEUROLOGIC: Speech is spontaneous and appropriate. Cranial nerves 2-12 grossly intact. Moving all extremities well. CT head, mild generalized cerebral and cerebellar volume loss, periventricular hypoattenuation. Cervical spine findings: Cervical spine is normally aligned, multiple degenerative disk space loss, severe at C4-C5, severe multiple levels of spinal canal stenosis, disk protrusion, multiple levels of [id number] neural foraminal narrowing, multilevel facet arthrosis. Thyroid gland appears to be basically normal with no acute fractures. IMPRESSION: Concussion secondary to fall at home. PLAN: We will go ahead and continue to monitor the patient and observe for any neurological changes and we will make further evaluation on her as indicated, PT/OT evaluate her and make further assessment on this very delightful lady and make further adjustment on her blood sugars as well as blood pressure. SHANTHI LEHMAN MD DR: EDE/pia JOB#: [id number] / [id number]
[2019-10-13 15:27] VITALS: BP 145/63
--- NOTE | 2019-10-13 15:48 | RAD ---
PA and lateral chest radiographs 10/13/2019 CLINICAL HISTORY: Shortness of breath. PA and lateral digital radiographs of the chest were obtained. Comparison study is dated 07/20/2019. The cardiac silhouette is mildly enlarged. The thoracic aorta is tortuous. Atherosclerotic calcification of the thoracic aorta is seen. Patchy right lower lobe atelectasis and/or infiltrate is noted. Subsegmental atelectasis is seen involving the left lower lobe. No pneumothorax or significant pleural effusion is seen. The osseous structures are unchanged. IMPRESSION: Patchy right lower lobe atelectasis and/ or infiltrate. Electronically signed by: Daniel Muro MD (10/13/2019 3:45 PM) [id number]
[2019-10-13] MEDS: CARVEDILOL 12.5 MG TABLET PO SCH (17:18)
[2019-10-13] MEDS: glipiZIDE 5 MG TABLET PO SCH (17:18)
[2019-10-13] MEDS ORDERED: IV NORMAL SALINE 1,000ML 1,000 ML IV SCH (17:45)
[2019-10-13 19:27] VITALS: BP 158/65
[2019-10-13] MEDS: cycloSPORINE 0.05% OPTH 1 DROP DROPERETTE OU SCH (20:08)
[2019-10-13] MEDS: GABAPENTIN 300 MG CAPSULE. PO SCH (20:09)
[2019-10-13] MEDS: OXYBUTYNIN CHLORIDE 5 MG TABLET PO SCH (20:09)
[2019-10-13] MEDS: DOCUSATE SODIUM 100 MG CAPSULE PO SCH (20:09)
[2019-10-13] MEDS: POTASSIUM CHLORIDE 10 MEQ TABLET.ER. PO SCH (20:09)
[2019-10-13] MEDS ORDERED: ASCORBIC ACID 500 MG TABLET PO SCH (21:00)
[2019-10-13] MEDS ORDERED: amLODIPine BESYLATE 10 MG TABLET PO SCH (21:00)
[2019-10-13] MEDS ORDERED: CALCIUM CARBONATE 500 MG TABLET PO SCH (21:00)
[2019-10-13 23:00] VITALS: BP 156/64
[2019-10-14 03:07] LABS: HEMOGLOBIN A1C 6.3 % (4.8-5.6)
[2019-10-14 05:30] VITALS: BP 155/71
[2019-10-14] MEDS ORDERED: LEVOTHYROXINE 75 MCG TABLET PO SCH (06:00)
[2019-10-14 06:12] LABS: BASO # 0.1 x10^3/uL (0.0-0.2); BASO % 1 % (0-3); EOS # 0.2 x10^3/uL (0.0-0.7); EOS % 4 % (0-3); HEMATOCRIT 31.2 % (36.0-47.0); HEMOGLOBIN 10.4 g/dL (12.0-15.5); LYMPH % 34 % (24-48); MEAN CORPUSCULAR HEMOGLOBIN 31 pg (25-35); MEAN CORPUSCULAR HGB CONC 33 g/dL (31-37); MEAN CORPUSCULAR VOLUME 92 fL (79-100); MONO # 0.4 x10^3/uL (0.0-1.1); MONO % 7 % (0-9); NEUT # 3.2 x10^3uL (1.8-7.7); NEUT % 55 % (31-73); PLATELET COUNT 152 x10^3/uL (140-400); RED BLOOD COUNT 3.39 x10^6/uL (3.50-5.40); RED CELL DISTRIBUTION WIDTH 15.4 % (11.5-14.5); WHITE BLOOD COUNT 5.9 x10^3/uL (4.0-11.0)
[2019-10-14 06:16] LABS: CALCIUM 8.7 mg/dL (8.5-10.1); CREATININE 1.4 mg/dL (0.6-1.0); GFR 35.7; POTASSIUM 3.8 mmol/L (3.5-5.1)
[2019-10-14] MEDS: OXYBUTYNIN CHLORIDE 5 MG TABLET PO SCH (08:10)
[2019-10-14] MEDS: DOCUSATE SODIUM 100 MG CAPSULE PO SCH (08:10)
[2019-10-14] MEDS: POTASSIUM CHLORIDE 10 MEQ TABLET.ER. PO SCH (08:10)
[2019-10-14] MEDS: CARVEDILOL 12.5 MG TABLET PO SCH (08:11)
[2019-10-14] MEDS: GABAPENTIN 300 MG CAPSULE. PO SCH (08:12)
[2019-10-14] MEDS: glipiZIDE 5 MG TABLET PO SCH (08:12)
[2019-10-14] MEDS: cycloSPORINE 0.05% OPTH 1 DROP DROPERETTE OU SCH (08:19)
[2019-10-14] MEDS ORDERED: LINAGLIPTIN 5 MG TABLET PO SCH (09:00)
[2019-10-14] MEDS ORDERED: CELECOXIB 100 MG CAPSULE PO SCH (09:00)
[2019-10-14] MEDS ORDERED: CETIRIZINE HCL 10 MG TABLET PO SCH (09:00)
[2019-10-14] MEDS ORDERED: FUROSEMIDE 40 MG TABLET PO SCH (09:00)
[2019-10-14] MEDS ORDERED: CYANOCOBALAMIN (VITAMIN B-12) 250 MCG TABLET. PO SCH (09:00)
[2019-10-14] MEDS ORDERED: PANTOPRAZOLE 40 MG TABLET. PO SCH (09:00)
[2019-10-14] MEDS ORDERED: MULTIVITAMIN with MINERAL TABLET. PO SCH (09:00)
[2019-10-14] MEDS ORDERED: ASPIRIN CHEWABLE 81 MG TABLET. PO SCH (09:00)
[2019-10-14] MEDS ORDERED: ATORVASTATIN CALCIUM 20 MG TABLET PO SCH (09:00)
[2019-10-14] MEDS ORDERED: CHOLECALCIFEROL (VITAMIN D3) 1,000 UNIT TABLET PO SCH (09:00)
[2019-10-14] MEDS ORDERED: CITALOPRAM 20 MG TABLET. PO SCH (09:00)
[2019-10-14 11:27] VITALS: BP 133/73
--- NOTE | 2019-10-14 11:45 | DS ---
DATE OF DISCHARGE: 10/14/2019 HOSPITAL COURSE: This 84-year-old female fell in her home. She is on blood thinners. The patient hit her head, was knocked out temporarily. The patient bled quite a bit in her home, was brought into the Emergency Room and was admitted for observation for concussion. The patient made excellent progress during the rest of her hospitalization. Blood pressure is 155/70, respiratory rate 17, pulse 60, afebrile. The patient's white count was 5.9, hemoglobin 10 and 31; no major drop there. Sodium and potassium 142, 3.8, 21, 1.4 and hemoglobin A1c was 6.3. She is a diabetic. The patient made excellent progress during the rest of her hospitalization with PT, OT and made further assessment. We will continue to monitor her as an outpatient and have her adjust her medications accordingly. IMPRESSION: Concussion secondary to fall in the kitchen, chronic blood thinning with Eliquis, essential hypertension, anemia of chronic disease. PLAN: As above. She will be on a heart healthy diet, decreased activity, monitored carefully by her family and have her return to clinic for followup in 7-10 days or sooner as needed. SHANTHI LEHMAN MD DR: EDE/pia JOB#: [id number] / [id number]
--- NOTE | 2019-10-14 13:30 | NUR ---
Patient discharging home, pt agrees with discharge plan. IV out. Discharge instructions reviewed with patient. Pt escorted to front entrance where patients daughter was providing transportation.
[2019-10-20] MEDS ORDERED: NON FORMULARY ITEM (Alendronate Sodium (Fosamax) 1 TAB) PO SCH (09:00)
== END 2019-10-14 13:30 | disposition home or self-care (01) ==
LOC: 1 SOUTH 09:05 → INTOOBSV 09:05
PROVIDERS: ADMIT Family Medicine; ATTEND Family Medicine
DX: S06.0X9A Concussion with loss of consciousness of unspecified duration, initial encounter (principal); I10 Essential (primary) hypertension; I25.10 Atherosclerotic heart disease of native coronary artery without angina pectoris; J44.9 Chronic obstructive pulmonary disease, unspecified; E78.5 Hyperlipidemia, unspecified; E03.9 Hypothyroidism, unspecified; E11.9 Type 2 diabetes mellitus without complications; D63.8 Anemia in other chronic diseases classified elsewhere; W18.09XA Striking against other object with subsequent fall, initial encounter; Y93.01 Activity, walking, marching and hiking; Y92.000 Kitchen of unspecified non-institutional (private) residence as the place of occurrence of the external cause; Y99.8 Other external cause status; Z79.82 Long term (current) use of aspirin; Z90.710 Acquired absence of both cervix and uterus; Z98.51 Tubal ligation status; Z98.890 Other specified postprocedural states; Z90.49 Acquired absence of other specified parts of digestive tract; Z79.899 Other long term (current) drug therapy
CPT/HCPCS: 36415; 36569; 71046; 80048; 80053; 81001; 83036; 85025; 87086; 96360; 96361; 97110; 97165; 97535; G0378; G0379; J7030

== ENCOUNTER 2019-12-10 13:36 | Inpatient (IN) | payer MEDICARE, OTHER ==
[~2019-12-10] VITALS: Ht 152.4 cm; Wt 85.7 kg
[~2019-12-10 13:36] MED LIST changes: +ALBU2.5V8 IH; +ASPI-630 PO; +CALC-614 PO; +DOCU-109 PO; +NITR0.4T24 SL
[2019-12-10] MEDS ORDERED: IV NORMAL SALINE 500ML 500 ML IV ONE (14:30)
--- NOTE | 2019-12-10 14:35 | RAD ---
INDICATION: Reason: SOA / Spl. Instructions: / History: COMPARISON: October 13, 2019 FINDINGS: Single view of chest obtained. Displaced right proximal humerus fracture. Enlarged cardiomediastinal silhouette with calcific atherosclerosis. There are multiple left rib fractures with callus formation again seen. The left lung base is not well evaluated secondary to overlying cardiac silhouette obscuring. IMPRESSION: * Enlarged cardiomediastinal silhouette without a definite region of focal airspace consolidation. * Displaced right proximal humerus fracture. There is also left rib fractures again seen with callus formation Electronically signed by: David Gutierrez MD (12/10/2019 2:32 PM) [id number]
[2019-12-10 15:12] LABS: BASO # 0.2 x10^3/uL (0.0-0.2); BASO % 4 % (0-3); EOS # 0.2 x10^3/uL (0.0-0.7); EOS % 4 % (0-3); HEMATOCRIT 32.7 % (36.0-47.0); HEMOGLOBIN 10.9 g/dL (12.0-15.5); LYMPH % 19 % (24-48); MEAN CORPUSCULAR HEMOGLOBIN 29 pg (25-35); MEAN CORPUSCULAR HGB CONC 33 g/dL (31-37); MEAN CORPUSCULAR VOLUME 89 fL (79-100); MONO # 0.6 x10^3/uL (0.0-1.1); MONO % 11 % (0-9); NEUT # 3.3 x10^3uL (1.8-7.7); NEUT % 62 % (31-73); PLATELET COUNT 259 x10^3/uL (140-400); RED BLOOD COUNT 3.69 x10^6/uL (3.50-5.40); RED CELL DISTRIBUTION WIDTH 16.2 % (11.5-14.5); WHITE BLOOD COUNT 5.3 x10^3/uL (4.0-11.0)
[2019-12-10 15:19] LABS: CALCIUM 9.1 mg/dL (8.5-10.1); CREATININE 1.6 mg/dL (0.6-1.0); GFR 30.6; POTASSIUM 3.8 mmol/L (3.5-5.1)
[2019-12-10 15:25] LABS: ALBUMIN 2.7 g/dL (3.4-5.0); ALBUMIN/GLOBULIN RATIO 0.6 (1.0-1.7); MAGNESIUM 2.4 mg/dL (1.8-2.4); TOTAL BILIRUBIN 0.5 mg/dL (0.2-1.0); TOTAL PROTEIN 7.3 g/dL (6.4-8.2)
[2019-12-10] MEDS ORDERED: ONDANSETRON PF 4 MG/2 ML VIAL. IVP PRN (16:30)
--- NOTE | 2019-12-10 16:30 | PHYS DOC ---
Past History Past Medical History: Arthritis, COPD, Diabetes, Heart Disease, Hypertension, PA Past Surgical History: Angioplasty Smoking: Non-smoker Alcohol Use: Occasionally General Adult EDM: Chief Complaint: COUGH HPI: HPI: Patient is a 84-year-old female who presented to ER due to general weakness, upper respiratory infection with nasal congestion, nonproductive cough and body ache. Patient had no sense of taste so she had not been eating much lately. Patient just came home from visiting her family in [place]. Patient says she was exposed to some family member down in [place] who tested positive for COVID-19. Patient was tested for COVID-19 yesterday in [place] but the result was not available yet. Patient denies any abdominal pain, no fever, no headache, no chest pain. Patient complain of trouble breathing when she walks. Review of Systems: Review of Systems: Constitutional: Denies fever or chills Eyes: Denies change in visual acuity HENT: Positive for nasal congestion or sore throat Respiratory: Positive for cough and shortness of breath Cardiovascular: Denies chest pain or edema GI: Denies abdominal pain, nausea, vomiting, bloody stools or diarrhea : Denies dysuria Musculoskeletal: Denies back pain or joint pain Integument: Denies rash Neurologic: Denies headache, focal weakness or sensory changes Endocrine: Denies polyuria or polydipsia Lymphatic: Denies swollen glands Psychiatric: Denies depression or anxiety Heart Score: Risk Factors: Risk Factors: DM, Current or recent (<one month) smoker, HTN, HLP, family history of CAD, obesity. Risk Scores: Score 0 - 3: 2.5% MACE over next 6 weeks - Discharge Home Score 4 - 6: 20.3% MACE over next 6 weeks - Admit for Clinical Observation Score 7 - 10: 72.7% MACE over next 6 weeks - Early Invasive Strategies Current Medications: Current Meds: Current Medications Medications (Trade) Dose Ordered Sig/Adve Start Time Stop Time Status Last Admin Dose Admin Sodium Chloride 500 ml @ 0 mls/hr 1X ONCE 12/10/19 14:30 12/10/19 14:32 DC 12/10/19 14:30 500 MLS/HR Allergies: Allergies: Allergies Coded Allergies Type Severity Reaction Last Updated Verified atenolol Allergy Intermediate 08/05/14 Yes codeine Allergy Intermediate Unknown 07/23/14 Yes lisinopril Allergy Intermediate 07/27/14 No morphine Allergy Intermediate Nausea and Vomiting 07/23/14 Yes Physical Exam: PE: Constitutional: Well developed, well nourished, no acute distress, non-toxic appearance. [] HENT: Normocephalic, atraumatic, bilateral external ears normal, oropharynx m oist, no oral exudates, nose normal. [] Eyes: PERRLA, EOMI, conjunctiva normal, no discharge. [] Neck: Normal range of motion, no tenderness, supple, no stridor. [] Cardiovascular:Heart rate regular rhythm, no murmur [] Lungs & Thorax: Bilateral breath sounds clear to auscultation [] Abdomen: Bowel sounds normal, soft, no tenderness, no masses, no pulsatile masses. [] Skin: Warm, dry, no erythema, no rash. [] Back: No tenderness, no CVA tenderness. [] Extremities: No tenderness, no cyanosis, no clubbing, ROM intact, no edema. [] Neurologic: Alert and oriented X 3, normal motor function, normal sensory function, no focal deficits noted. [] Psychologic: Affect normal, judgement normal, mood normal. [] Current Patient Data: Labs: Laboratory Tests Test 12/10/19 14:30 White Blood Count 5.3 x10^3/uL (4.0-11.0) Red Blood Count 3.69 x10^6/uL (3.50-5.40) Hemoglobin 10.9 g/dL (12.0-15.5) L Hematocrit 32.7 % (36.0-47.0) L Mean Corpuscular Volume 89 fL (79-100) Mean Corpuscular Hemoglobin 29 pg (25-35) Mean Corpuscular Hemoglobin Concent 33 g/dL (31-37) Red Cell Distribution Width 16.2 % (11.5-14.5) H Platelet Count 259 x10^3/uL (140-400) Neutrophils (%) (Auto) 62 % (31-73) Lymphocytes (%) (Auto) 19 % (24-48) L Monocytes (%) (Auto) 11 % (0-9) H Eosinophils (%) (Auto) 4 % (0-3) H Basophils (%) (Auto) 4 % (0-3) H Neutrophils # (Auto) 3.3 x10^3uL (1.8-7.7) Lymphocytes # (Auto) 1.0 x10^3/uL (1.0-4.8) Monocytes # (Auto) 0.6 x10^3/uL (0.0-1.1) Eosinophils # (Auto) 0.2 x10^3/uL (0.0-0.7) Basophils # (Auto) 0.2 x10^3/uL (0.0-0.2) Sodium Level 140 mmol/L (136-145) Potassium Level 3.8 mmol/L (3.5-5.1) Chloride Level 104 mmol/L (98-107) Carbon Dioxide Level 23 mmol/L (21-32) Anion Gap 13 (6-14) Blood Urea Nitrogen 25 mg/dL (7-20) H Creatinine 1.6 mg/dL (0.6-1.0) H Estimated GFR (Cockcroft-Gault) 30.6 BUN/Creatinine Ratio 16 (6-20) Glucose Level 129 mg/dL (70-99) H Calcium Level 9.1 mg/dL (8.5-10.1) Magnesium Level 2.4 mg/dL (1.8-2.4) Total Bilirubin 0.5 mg/dL (0.2-1.0) Aspartate Amino Transferase (AST) 33 U/L (15-37) Alanine Aminotransferase (ALT) 34 U/L (14-59) Alkaline Phosphatase 56 U/L (46-116) Total Protein 7.3 g/dL (6.4-8.2) Albumin 2.7 g/dL (3.4-5.0) L Albumin/Globulin Ratio 0.6 (1.0-1.7) L Vital Signs: Vital Signs Date Time Temp Pulse Resp B/P (MAP) Pulse Ox O2 Delivery O2 Flow Rate FiO2 12/10/19 16:02 73 24 153/69 (97) 95 Room Air 12/10/19 13:55 97.7 EKG: EKG: [] Radiology/Procedures: Radiology/Procedures: [][address] [address] IMAGING REPORT Signed PATIENT: YSABEL RAMSEY MACCOUNT: [id number] : 1935 LOCATION: ER AGE: 84 SEX: F EXAM STATUS: REG ER ORD. PHYSICIAN: SHANTHI OBANDO DO REASON: SOA PROCEDURE: CHEST AP ONLY INDICATION: Reason: SOA / Spl. Instructions: / History: COMPARISON: October 13, 2019 FINDINGS: Single view of chest obtained. Displaced right proximal humerus fracture. Enlarged cardiomediastinal silhouette with calcific atherosclerosis. There are multiple left rib fractures with callus formation again seen. The left lung base is not well evaluated secondary to overlying cardiac silhouette obscuring. IMPRESSION: * Enlarged cardiomediastinal silhouette without a definite region of focal airspace consolidation. * Displaced right proximal humerus fracture. There is also left rib fractures again seen with callus formation Electronically signed by: Abby Sanders MD (12/10/2019 2:32 PM) [id number] DICTATED AND SIGNED BY: ABBY SANDERS MD DATE: 12/10/19 1432 CC: SHANTHI LEHMAN MD; SHANTHI OBANDO DO ~ Course & Med Decision Making: Course & Med Decision Making Pertinent Labs and Imaging studies reviewed. (See chart for details) Patient is an 84-year-old female who was suspected TO HAVE COVID19 infection. Patient IS having trouble breathing with exertion, patient will be admitted to hospital for further evaluation and treatment. Dragon Disclaimer: Dragon Disclaimer: This electronic medical record was generated, in whole or in part, using a voice recognition dictation system. Departure Departure: Impression: Primary Impression: Suspected COVID-19 virus infection Additional Impressions: Hypoxia Weakness Disposition: ADMITTED INPATIENT Admitting Physician: Shanthi Lehman Condition: STABLE Referrals: SHANTHI LEHMAN MD (PCP) SHANTHI OBANDO DO Dec 10, 2019 16:30
[2019-12-10 16:48] LABS: BILIRUBIN,URINE NEG (NEG); CLARITY,URINE CLEAR; COLOR,URINE YELLOW; GLUCOSE,URINE NEG (NEG)
[2019-12-10] MEDS ORDERED: TRAM50TA PO (16:48)
[2019-12-10 16:49] LABS: BACTERIA,URINE 0 /HPF (0-FEW); NITRITE,URINE NEG (NEG); RBC,URINE 0 /HPF (0-2); UROBILINOGEN,URINE 0.2 mg/dL (0.2 mg/dL); WBC,URINE 0 /HPF (0-4)
[2019-12-10 17:51] VITALS: BP 178/65
--- NOTE | 2019-12-10 18:02 | NUR ---
NSG NOTE; ADMISSION ADMIT TO ROOM 122 VIA AMB ACCOMP BY EMS PERSONNEL C/O SOA WORSENING WITH EXERTION AND COUGH, AND CHANGE IN TASTE AFTER NOW KNOWN COVID 19 EXPOSURE AT [employer] IN [place] IN OCTOBER
[2019-12-10] MEDS ORDERED: NITROGLYCERIN SUBLINGUAL 0.4 MG BOTTLE OF 25. SL PRN (18:30)
[2019-12-10] MEDS ORDERED: ALBUTEROL SULFATE 2.5 MG/3 ML NEBU. IH PRN (18:30)
[2019-12-10] MEDS ORDERED: AZITHROMYCIN 250 MG TABLET. PO ONE (18:45)
[2019-12-10] MEDS ORDERED: ALBUTEROL SULFATE 8GM INHALER. INH PRN (18:45)
[2019-12-10] MEDS ORDERED: DEXTROSE 50% 25 GM / 50ML DISP.SYRIN. IV PRN (19:30)
[2019-12-10 19:47] VITALS: BP 148/67
[2019-12-10] MEDS: IV NORMAL SALINE 1,000ML 1,000 ML IV SCH (19:54)
[2019-12-10] MEDS: ENOXAPARIN 40 MG/0.4 ML SYRINGE. SQ SCH (19:57)
[2019-12-10] MEDS: GABAPENTIN 300 MG CAPSULE. PO SCH (19:57)
[2019-12-10] MEDS: cycloSPORINE 0.05% OPTH 1 DROP DROPERETTE OU SCH (19:57)
[2019-12-10] MEDS: DOCUSATE SODIUM 100 MG CAPSULE PO SCH (19:57)
[2019-12-10] MEDS: OXYBUTYNIN CHLORIDE 5 MG TABLET PO SCH (19:57)
[2019-12-10] MEDS: POTASSIUM CHLORIDE 10 MEQ TABLET.ER. PO SCH (19:58)
[2019-12-10] MEDS: amLODIPine BESYLATE 10 MG TABLET PO SCH (19:58)
[2019-12-10] MEDS: ZOLPIDEM 5 MG TABLET. PO PRN (20:23)
[2019-12-10] MEDS ORDERED: guaiFENesin DM 200MG/20MG 10 ML SYRUP PO PRN (20:30)
[2019-12-10] MEDS ORDERED: MAG HYDROX/AL HYDROX/SIMETH 30 ML ORAL.SUSP PO PRN (20:30)
[2019-12-10] MEDS ORDERED: DEXAMETHASONE SOD PHOS 4 MG/ML VIAL. IVP ONE (20:30)
[2019-12-10 22:56] VITALS: BP 161/65
[2019-12-10 23:56] LABS: INFLUENZA A PATIENT NEGATIVE (NEGATIVE); INFLUENZA B PATIENT NEGATIVE (NEGATIVE)
[2019-12-11] MEDS: IV NORMAL SALINE 1,000ML 1,000 ML IV SCH (05:47)
[2019-12-11] MEDS: LEVOTHYROXINE 75 MCG TABLET PO SCH (05:47)
[2019-12-11 06:08] VITALS: BP 160/60
[2019-12-11 06:35] LABS: BASO % 1 % (0-3); EOS % 1 % (0-3); HEMATOCRIT 31.5 % (36.0-47.0); HEMOGLOBIN 10.3 g/dL (12.0-15.5); LYMPH # 0.6 x10^3/uL (1.0-4.8); LYMPH % 16 % (24-48); MEAN CORPUSCULAR HEMOGLOBIN 29 pg (25-35); MEAN CORPUSCULAR HGB CONC 33 g/dL (31-37); MEAN CORPUSCULAR VOLUME 90 fL (79-100); MONO # 0.2 x10^3/uL (0.0-1.1); MONO % 4 % (0-9); NEUT # 3.2 x10^3uL (1.8-7.7); NEUT % 79 % (31-73); PLATELET COUNT 238 x10^3/uL (140-400); RED BLOOD COUNT 3.52 x10^6/uL (3.50-5.40); RED CELL DISTRIBUTION WIDTH 16.3 % (11.5-14.5); WHITE BLOOD COUNT 4.1 x10^3/uL (4.0-11.0)
[2019-12-11 06:38] LABS: CALCIUM 8.3 mg/dL (8.5-10.1); CREATININE 1.1 mg/dL (0.6-1.0); GFR 47.1; POTASSIUM 4.6 mmol/L (3.5-5.1)
[2019-12-11] MEDS: PANTOPRAZOLE 40 MG TABLET. PO SCH (08:04)
[2019-12-11] MEDS: OXYBUTYNIN CHLORIDE 5 MG TABLET PO SCH ×3 (08:05→21:28)
[2019-12-11] MEDS: CARVEDILOL 12.5 MG TABLET PO SCH ×2 (08:05→17:32)
[2019-12-11] MEDS: GABAPENTIN 300 MG CAPSULE. PO SCH ×2 (08:05→21:29)
[2019-12-11] MEDS: ATORVASTATIN CALCIUM 20 MG TABLET PO SCH (08:05)
[2019-12-11] MEDS: glipiZIDE 5 MG TABLET PO SCH ×2 (08:05→17:32)
[2019-12-11] MEDS: LINAGLIPTIN 5 MG TABLET PO SCH (08:05)
[2019-12-11] MEDS: POTASSIUM CHLORIDE 10 MEQ TABLET.ER. PO SCH ×2 (08:05→21:28)
[2019-12-11] MEDS: CITALOPRAM 20 MG TABLET. PO SCH (08:05)
[2019-12-11] MEDS: DOCUSATE SODIUM 100 MG CAPSULE PO SCH ×2 (08:06→21:28)
[2019-12-11] MEDS: CHOLECALCIFEROL (VITAMIN D3) 1,000 UNIT TABLET PO SCH (08:06)
[2019-12-11] MEDS: AZITHROMYCIN 250 MG TABLET. PO SCH (08:06)
[2019-12-11] MEDS: cycloSPORINE 0.05% OPTH 1 DROP DROPERETTE OU SCH ×2 (08:06→21:28)
[2019-12-11] MEDS: CETIRIZINE HCL 10 MG TABLET PO SCH (08:06)
[2019-12-11] MEDS: ASPIRIN CHEWABLE 81 MG TABLET. PO SCH (08:06)
[2019-12-11] MEDS: FUROSEMIDE 40 MG TABLET PO SCH (08:06)
[2019-12-11] MEDS: CELECOXIB 100 MG CAPSULE PO SCH (08:08)
[2019-12-11] MEDS: INSULIN LISPRO 300 UNITS/3 ML VIAL. SQ SCH ×3 (08:11→17:38)
--- NOTE | 2019-12-11 08:38 | NUR ---
IP: patient PUI for COVID-19, requires contact and airborne precautions.
[2019-12-11 10:55] VITALS: BP 150/65
[2019-12-11] MEDS ORDERED: REMDESIVIR LOAD in IV NORMAL SALINE 250ML TV IV ONE ×2 (12:00→15:00)
[2019-12-11] MEDS: LACTOBACILLUS RHAMNOSUS GG 1 CAPSULE. PO SCH ×2 (13:51→21:28)
[2019-12-11] MEDS: DEXAMETHASONE SOD PHOS 4 MG/ML VIAL. IV SCH (13:51)
--- NOTE | 2019-12-11 13:59 | EKG ---
[address] [address] Test Date: 2019-12-11 Test Time: 13:57:44 Pat Name: YSABEL RAMSEY Department: Room: 122 A Gender: F Eap Consultant: : 1935 Requested By: SHANTHI LEHMAN Order Number: [id number] Reading MD: Measurements Intervals [place] Rate: 72 P: 0 FL: 188 QRS: 18 QRSD: 86 T: -7 QT: 426 QTc: 468 Interpretive Statements SINUS RHYTHM ATRIAL PREMATURE COMPLEX(ES) OTHERWISE NORMAL ECG RI6.01 Compared to ECG 07/20/2019 11:59:36 No significant changes
[2019-12-11 15:00] VITALS: BP 157/71
--- NOTE | 2019-12-11 15:36 | NUR ---
Use of remdesivir approved by Dr. Patton. Called into patient's room to discuss the benefits and risks of remdesivir use, how she will receive remdesivir, potential ADRs, and alternative therapies. I explained that remdesivir is available under an Emergency Use Authorization, it has not been approved by the FDA and therefore there may be risks that are currently unknown. Patient was provided the EUA fact sheet and she enthusiastically agreed to initiation of remdesivir.
--- NOTE | 2019-12-11 15:41 | HP ---
ADMIT DATE: 12/10/2019 HISTORY OF PRESENT ILLNESS: The patient is a pleasant 84-year-old female who just returned back from [place]. She had not been feeling very well, very weak and tired. The patient was tested for COVID-19 back in [place] and it just came through that it was positive. She complained of body achiness, cough and congestion, otherwise was reasonably doing ____, just generalized weakness, more so than she usually, usually a vivacious individual. She was admitted for acute respiratory distress with COVID-19 and make further evaluation on her as indicated. The patient was having some shortness of breath. PAST MEDICAL AND SURGICAL HISTORY: Includes that of lightheadedness, heart attack 27 years ago, hypercholesterolemia, pneumonia, sleep apnea, cholecystectomy, obesity, hysterectomy, urinary tract infection. Orthopedic surgery on the wrist and ankle, right shoulder, left hip with rods. She broke her right shoulder. Type 2 diabetes, hypothyroidism, depression, anemia, skin cancer, 2 broken ribs, influenza in 2020. Pneumococcal vaccinations are up-to-date. She has had history of MRSA and bladder sling. FAMILY HISTORY: Unremarkable except for hypertension. ALLERGIES: ATENOLOL, CODEINE, LISINOPRIL AND MORPHINE. SOCIAL HISTORY: Denies smoking, alcohol or drug use. The patient is a full code. REVIEW OF SYSTEMS: Outside of some general weakness, denies chest pain, does have some shortness of breath. Denies abdominal pain. Denies any nausea, vomiting, melena, hematochezia or hematemesis, and is feeling well otherwise relatively good except extreme shortness of breath, achiness all over. PHYSICAL EXAMINATION: GENERAL: Pleasant white female. VITAL SIGNS: Blood pressure 150/65, respiratory rate 18, pulse 75, afebrile. HEENT: The patient's head was atraumatic, normocephalic. Eyes: PERRLA without jaundice. The mouth and throat were normal. NECK: Supple ____ or thyromegaly. LUNGS: Diminished throughout, poor movement of air, diminished. CARDIOVASCULAR: Regular sinus rhythm, S1, S2, without murmur, rub, thrill or extra heart sounds. ABDOMEN: Soft, protuberant, nontender. No rebound, no guarding. Positive bowel sounds. No hepatosplenomegaly was noted. EXTREMITIES: No clubbing, cyanosis, nor edema. Some maybe trace edema noted. NEUROLOGIC: The patient is alert and oriented x 3, cheerful, usual self. LABORATORY DATA: The patient's white count 5, hemoglobin 10 and 32. Chemistries 140, 4.6, BUN and creatinine 18 and 1.1. BNP was elevated 2000. Albumin low at 2.7. Creatinine 1.6, down to 1.1. IMPRESSION: Acute respiratory distress, positive COVID-19 respiratory infection, acute renal failure from renal stasis, type 2 diabetes, morbid obesity, positive COVID-19 as indicated. PLAN: Continue with the Zithromax, hydroxychloroquine, dexamethasone and remdesivir. Also, placed on Lovenox 40 mg daily. Continue to monitor carefully and make further assessment on her as indicated. She is on isolation and all precautions taken. SHANTHI LEHMAN MD DR: EDE/pia JOB#: [id number] / [id number]
[2019-12-11 21:00] VITALS: BP 147/52
[2019-12-11] MEDS: ENOXAPARIN 40 MG/0.4 ML SYRINGE. SQ SCH (21:29)
[2019-12-11] MEDS: amLODIPine BESYLATE 10 MG TABLET PO SCH (21:29)
[2019-12-11] MEDS: HYDROXYCHLOROQUINE (PROGRAM) 200 MG TABLET PO SCH (21:29)
[2019-12-11] MEDS: ZOLPIDEM 5 MG TABLET. PO PRN (21:46)
[2019-12-11 23:09] VITALS: BP 138/74
[2019-12-12] MEDS: LEVOTHYROXINE 75 MCG TABLET PO SCH (06:40)
[2019-12-12] MEDS: HYDROXYCHLOROQUINE (PROGRAM) 200 MG TABLET PO SCH ×2 (08:44→21:35)
[2019-12-12] MEDS: CITALOPRAM 20 MG TABLET. PO SCH (08:44)
[2019-12-12] MEDS: DOCUSATE SODIUM 100 MG CAPSULE PO SCH ×2 (08:44→21:35)
[2019-12-12] MEDS: ATORVASTATIN CALCIUM 20 MG TABLET PO SCH (08:44)
[2019-12-12] MEDS: CELECOXIB 100 MG CAPSULE PO SCH (08:44)
[2019-12-12] MEDS: OXYBUTYNIN CHLORIDE 5 MG TABLET PO SCH ×3 (08:44→21:35)
[2019-12-12] MEDS: PANTOPRAZOLE 40 MG TABLET. PO SCH (08:44)
[2019-12-12] MEDS: AZITHROMYCIN 250 MG TABLET. PO SCH (08:45)
[2019-12-12 08:47] VITALS: BP 145/65
[2019-12-12] MEDS: CARVEDILOL 12.5 MG TABLET PO SCH ×2 (08:47→17:01)
[2019-12-12] MEDS: POTASSIUM CHLORIDE 10 MEQ TABLET.ER. PO SCH ×2 (08:47→21:36)
[2019-12-12] MEDS: FUROSEMIDE 40 MG TABLET PO SCH (08:48)
[2019-12-12] MEDS: LINAGLIPTIN 5 MG TABLET PO SCH (08:48)
[2019-12-12] MEDS: CHOLECALCIFEROL (VITAMIN D3) 1,000 UNIT TABLET PO SCH (08:48)
[2019-12-12] MEDS: GABAPENTIN 300 MG CAPSULE. PO SCH ×2 (08:48→21:36)
[2019-12-12] MEDS: CETIRIZINE HCL 10 MG TABLET PO SCH (08:48)
[2019-12-12] MEDS: ASPIRIN CHEWABLE 81 MG TABLET. PO SCH (08:48)
[2019-12-12] MEDS: cycloSPORINE 0.05% OPTH 1 DROP DROPERETTE OU SCH ×2 (08:48→21:39)
[2019-12-12] MEDS: LACTOBACILLUS RHAMNOSUS GG 1 CAPSULE. PO SCH ×2 (08:48→21:35)
[2019-12-12] MEDS: DEXAMETHASONE SOD PHOS 4 MG/ML VIAL. IV SCH (08:49)
[2019-12-12] MEDS: glipiZIDE 5 MG TABLET PO SCH ×2 (08:52→17:01)
[2019-12-12] MEDS: INSULIN LISPRO 300 UNITS/3 ML VIAL. SQ SCH ×3 (08:59→17:03)
[2019-12-12 10:19] LABS: ALBUMIN 2.6 g/dL (3.4-5.0); ALBUMIN/GLOBULIN RATIO 0.6 (1.0-1.7); CALCIUM 8.5 mg/dL (8.5-10.1); CREATININE 1.2 mg/dL (0.6-1.0); GFR 42.6; TOTAL BILIRUBIN 0.3 mg/dL (0.2-1.0); TOTAL PROTEIN 7.1 g/dL (6.4-8.2)
[2019-12-12] MEDS: INSULIN GLARGINE SYRINGE. SQ SCH ×2 (10:30→21:38)
[2019-12-12 11:13] VITALS: BP 148/65
[2019-12-12 14:41] VITALS: BP 136/70
--- NOTE | 2019-12-12 16:46 | EKG ---
[address] [address] Test Date: 2019-12-12 Test Time: 16:28:43 Pat Name: YSABEL RAMSEY Department: Room: 122 A Gender: F Template Fitter: Iliana Lucas : 1935 Requested By: SHANTHI LEHMAN Order Number: [id number] Reading MD: Measurements Intervals [place] Rate: 70 P: -90 [place]: 174 QRS: 21 QRSD: 82 T: 3 QT: 416 QTc: 452 Interpretive Statements SINUS RHYTHM QRS(T) CONTOUR ABNORMALITY CONSIDER ANTEROSEPTAL MYOCARDIAL DAMAGE POSSIBLY ABNORMAL ECG RI6.01 No previous ECG available for comparison
[2019-12-12] MEDS: REMDESIVIR 100mg in NORMAL SALINE 250ML X 4 DAYS IV SCH (17:01)
[2019-12-12 19:00] VITALS: BP 147/74
[2019-12-12] MEDS: ZOLPIDEM 5 MG TABLET. PO PRN (21:35)
[2019-12-12] MEDS: amLODIPine BESYLATE 10 MG TABLET PO SCH (21:35)
[2019-12-12] MEDS: ENOXAPARIN 40 MG/0.4 ML SYRINGE. SQ SCH (21:35)
--- NOTE | 2019-12-12 21:54 | PN ---
DATE: 12/12/2019 SUBJECTIVE: An 84-year-old female, in with acute respiratory failure secondary to COVID-19. Had been traveling in [place], then developed symptoms. Came back up here where she lives to be hospitalized due to her elderly age, very high risk patient. Has done reasonably well over the last 24 hours on Zithromax, hydroxychloroquine, dexamethasone and remdesivir. The patient says she is feeling much better and making suitable progress with the combination of medications given. OBJECTIVE: VITAL SIGNS: Blood pressure 140/74, respiratory rate 16, pulse 68, afebrile. GENERAL: The patient is alert and oriented, cheerful as usual. LUNGS: Diminished, poor movement of air, but they are clear than they were. CARDIOVASCULAR: Regular sinus rhythm. ABDOMEN: Soft, nontender. EXTREMITIES: No clubbing, cyanosis or edema. IMPRESSION: Acute respiratory failure secondary to COVID-19. SHANTHI LEHMAN MD DR: EDE/pia JOB#: [id number] / [id number]
[2019-12-12 22:00] VITALS: BP 143/58
--- NOTE | 2019-12-13 03:13 | PN ---
DATE: 12/12/2019 SUBJECTIVE: An 84-year-old female in with acute respiratory failure and COVID-19. She had been visiting in [place] when she became infected. She has again a positive test here. She says she feels great. OBJECTIVE: VITAL SIGNS: Blood pressure is 148/65, respiratory rate 20, pulse 70, afebrile. GENERAL: The patient is alert and oriented. LUNGS: Diminished, but clear. CARDIOVASCULAR: Regular sinus rhythm, S1, S2. ABDOMEN: Soft, nontender. EXTREMITIES: No clubbing, cyanosis, nor edema. NEUROLOGIC: Intact. IMPRESSION: Acute respiratory failure, COVID-19 positive, acute bronchitis, acute renal failure secondary to renal stasis, type 2 diabetes, morbid obesity. PLAN: Continue on present drug regimen, which seems to be working very nicely. The hydroxychloroquine along with the Decadron seems to be plenty here in terms of helping her along with the other medications and occasional breathing treatment and Zithromax seems to be really working well for this individual. SHANTHI LEHMAN MD DR: EDE/pia JOB#: [id number] / [id number]
[2019-12-13 05:50] VITALS: BP 161/62
[2019-12-13] MEDS: LEVOTHYROXINE 75 MCG TABLET PO SCH (06:31)
[2019-12-13] MEDS: glipiZIDE 5 MG TABLET PO SCH ×2 (07:30→16:22)
[2019-12-13] MEDS: INSULIN GLARGINE SYRINGE. SQ SCH ×2 (09:00→21:03)
[2019-12-13] MEDS: CELECOXIB 100 MG CAPSULE PO SCH (09:04)
[2019-12-13] MEDS: ATORVASTATIN CALCIUM 20 MG TABLET PO SCH (09:04)
[2019-12-13] MEDS: PANTOPRAZOLE 40 MG TABLET. PO SCH (09:04)
[2019-12-13] MEDS: CITALOPRAM 20 MG TABLET. PO SCH (09:04)
[2019-12-13] MEDS: LACTOBACILLUS RHAMNOSUS GG 1 CAPSULE. PO SCH ×2 (09:04→21:05)
[2019-12-13] MEDS: CETIRIZINE HCL 10 MG TABLET PO SCH (09:05)
[2019-12-13] MEDS: OXYBUTYNIN CHLORIDE 5 MG TABLET PO SCH ×3 (09:05→21:05)
[2019-12-13] MEDS: FUROSEMIDE 40 MG TABLET PO SCH (09:05)
[2019-12-13] MEDS: CARVEDILOL 12.5 MG TABLET PO SCH ×2 (09:05→16:22)
[2019-12-13] MEDS: DOCUSATE SODIUM 100 MG CAPSULE PO SCH ×2 (09:05→21:05)
[2019-12-13] MEDS: GABAPENTIN 300 MG CAPSULE. PO SCH ×2 (09:05→21:04)
[2019-12-13] MEDS: POTASSIUM CHLORIDE 10 MEQ TABLET.ER. PO SCH ×2 (09:05→21:04)
[2019-12-13] MEDS: AZITHROMYCIN 250 MG TABLET. PO SCH (09:05)
[2019-12-13] MEDS: CHOLECALCIFEROL (VITAMIN D3) 1,000 UNIT TABLET PO SCH (09:05)
[2019-12-13] MEDS: ASPIRIN CHEWABLE 81 MG TABLET. PO SCH (09:05)
[2019-12-13] MEDS: HYDROXYCHLOROQUINE (PROGRAM) 200 MG TABLET PO SCH ×2 (09:06→21:04)
[2019-12-13] MEDS: DEXAMETHASONE SOD PHOS 4 MG/ML VIAL. IV SCH (09:06)
[2019-12-13] MEDS: LINAGLIPTIN 5 MG TABLET PO SCH (09:06)
[2019-12-13] MEDS: cycloSPORINE 0.05% OPTH 1 DROP DROPERETTE OU SCH ×2 (09:07→21:05)
[2019-12-13] MEDS: INSULIN LISPRO 300 UNITS/3 ML VIAL. SQ SCH ×3 (09:14→16:23)
[2019-12-13 09:18] LABS: BASO # 0.1 x10^3/uL (0.0-0.2); BASO % 1 % (0-3); EOS % 0 % (0-3); HEMATOCRIT 34.6 % (36.0-47.0); HEMOGLOBIN 11.2 g/dL (12.0-15.5); LYMPH # 1.8 x10^3/uL (1.0-4.8); LYMPH % 17 % (24-48); MEAN CORPUSCULAR HEMOGLOBIN 29 pg (25-35); MEAN CORPUSCULAR HGB CONC 32 g/dL (31-37); MEAN CORPUSCULAR VOLUME 90 fL (79-100); MONO # 0.9 x10^3/uL (0.0-1.1); MONO % 9 % (0-9); NEUT # 7.8 x10^3uL (1.8-7.7); NEUT % 74 % (31-73); PLATELET COUNT 357 x10^3/uL (140-400); RED BLOOD COUNT 3.84 x10^6/uL (3.50-5.40); WHITE BLOOD COUNT 10.6 x10^3/uL (4.0-11.0)
[2019-12-13 09:28] LABS: ALBUMIN 2.7 g/dL (3.4-5.0); ALBUMIN/GLOBULIN RATIO 0.6 (1.0-1.7); CALCIUM 8.8 mg/dL (8.5-10.1); CREATININE 1.2 mg/dL (0.6-1.0); GFR 42.6; POTASSIUM 3.9 mmol/L (3.5-5.1); TOTAL BILIRUBIN 0.3 mg/dL (0.2-1.0); TOTAL PROTEIN 7.1 g/dL (6.4-8.2)
[2019-12-13 10:32] LABS: % ATYL 3 % (0-0); % BANDS 2 % (0-9); % LYMPHS 15 % (24-48); % METAS 1 % (0-0); % MONOS 1 % (0-10); % SEGS 78 % (35-66)
[2019-12-13 10:33] LABS: OVALOCYTES OCC; PLT ESTIMATE INCREASED (ADEQUATE)
[2019-12-13 10:35] LABS: TOXIC GRANULATION SLIGHT
[2019-12-13 10:57] VITALS: BP 153/70
[2019-12-13 14:28] VITALS: BP 147/68
[2019-12-13] MEDS: REMDESIVIR 100mg in NORMAL SALINE 250ML X 4 DAYS IV SCH (14:33)
[2019-12-13 20:14] VITALS: BP 141/70
[2019-12-13] MEDS: amLODIPine BESYLATE 10 MG TABLET PO SCH (21:04)
[2019-12-13] MEDS: ENOXAPARIN 40 MG/0.4 ML SYRINGE. SQ SCH (21:04)
[2019-12-13] MEDS: ZOLPIDEM 5 MG TABLET. PO PRN (21:40)
[2019-12-13 22:30] VITALS: BP 140/64
--- NOTE | 2019-12-14 01:07 | PN ---
DATE: 12/13/2019 SUBJECTIVE: The patient with acute respiratory failure secondary to COVID-19 resting fairly comfortably, making fairly good progress, feeling somewhat better. OBJECTIVE: VITAL SIGNS: Blood pressure 147/____, respiratory rate 22, pulse 62, somewhere it says 22 low, which is hard to believe (NC) on that pulse, temperature 98.2. HEENT: The patient's head was atraumatic, normocephalic. Eyes: PERRLA without jaundice. The mouth and throat were normal. NECK: Supple. LUNGS: Diminished, but clear than they have been. She is making good progress. CARDIOVASCULAR: Regular sinus rhythm. IMPRESSION: Therefore, acute respiratory failure secondary to COVID-19, essential hypertension, chronic renal failure, type 2 diabetes, hypoalbuminemia, moderate protein malnutrition, detected COVID-19 in her swab. SHANTHI LEHMAN MD DR: EDE/pia JOB#: [id number] / [id number]
[2019-12-14] MEDS: LEVOTHYROXINE 75 MCG TABLET PO SCH (05:47)
[2019-12-14 07:37] LABS: ALBUMIN 2.3 g/dL (3.4-5.0); ALBUMIN/GLOBULIN RATIO 0.6 (1.0-1.7); CALCIUM 8.1 mg/dL (8.5-10.1); CREATININE 1.2 mg/dL (0.6-1.0); GFR 42.6; POTASSIUM 3.8 mmol/L (3.5-5.1); TOTAL BILIRUBIN 0.2 mg/dL (0.2-1.0); TOTAL PROTEIN 6.2 g/dL (6.4-8.2)
[2019-12-14] MEDS: INSULIN LISPRO 300 UNITS/3 ML VIAL. SQ SCH ×3 (08:00→17:00)
[2019-12-14] MEDS: GABAPENTIN 300 MG CAPSULE. PO SCH ×2 (08:17→21:06)
[2019-12-14] MEDS: LINAGLIPTIN 5 MG TABLET PO SCH (08:17)
[2019-12-14] MEDS: ATORVASTATIN CALCIUM 20 MG TABLET PO SCH (08:18)
[2019-12-14] MEDS: LACTOBACILLUS RHAMNOSUS GG 1 CAPSULE. PO SCH ×2 (08:18→21:07)
[2019-12-14] MEDS: CITALOPRAM 20 MG TABLET. PO SCH (08:18)
[2019-12-14] MEDS: CARVEDILOL 12.5 MG TABLET PO SCH ×2 (08:18→16:35)
[2019-12-14] MEDS: HYDROXYCHLOROQUINE (PROGRAM) 200 MG TABLET PO SCH ×2 (08:18→21:07)
[2019-12-14] MEDS: DOCUSATE SODIUM 100 MG CAPSULE PO SCH ×2 (08:19→21:06)
[2019-12-14] MEDS: CHOLECALCIFEROL (VITAMIN D3) 1,000 UNIT TABLET PO SCH (08:19)
[2019-12-14] MEDS: POTASSIUM CHLORIDE 10 MEQ TABLET.ER. PO SCH ×2 (08:19→21:07)
[2019-12-14] MEDS: cycloSPORINE 0.05% OPTH 1 DROP DROPERETTE OU SCH ×2 (08:19→21:07)
[2019-12-14] MEDS: ASPIRIN CHEWABLE 81 MG TABLET. PO SCH (08:19)
[2019-12-14] MEDS: FUROSEMIDE 40 MG TABLET PO SCH (08:19)
[2019-12-14] MEDS: OXYBUTYNIN CHLORIDE 5 MG TABLET PO SCH ×3 (08:19→21:06)
[2019-12-14] MEDS: CETIRIZINE HCL 10 MG TABLET PO SCH (08:19)
[2019-12-14] MEDS: AZITHROMYCIN 250 MG TABLET. PO SCH (08:19)
[2019-12-14] MEDS: PANTOPRAZOLE 40 MG TABLET. PO SCH (08:19)
[2019-12-14] MEDS: CELECOXIB 100 MG CAPSULE PO SCH (08:19)
[2019-12-14] MEDS: glipiZIDE 5 MG TABLET PO SCH ×2 (08:19→16:35)
[2019-12-14] MEDS: DEXAMETHASONE SOD PHOS 4 MG/ML VIAL. IV SCH (08:20)
[2019-12-14 11:15] VITALS: BP 162/62
[2019-12-14] MEDS: INSULIN GLARGINE SYRINGE. SQ SCH ×2 (12:43→21:13)
[2019-12-14 15:15] VITALS: BP 149/70
[2019-12-14] MEDS: REMDESIVIR 100mg in NORMAL SALINE 250ML X 4 DAYS IV SCH (15:25)
[2019-12-14 19:47] VITALS: BP 158/76
[2019-12-14] MEDS: amLODIPine BESYLATE 10 MG TABLET PO SCH (21:06)
[2019-12-14] MEDS: ZOLPIDEM 5 MG TABLET. PO PRN (21:06)
[2019-12-14] MEDS: ENOXAPARIN 40 MG/0.4 ML SYRINGE. SQ SCH (21:07)
[2019-12-14 22:49] VITALS: BP 161/59
--- NOTE | 2019-12-15 01:16 | NUR ---
PT IS RESTING IN BED APON ASSESSMENT AND MEDICATION ADMINISTRATION. PT HAD NO COMPLAINTS OF PAIN OR SOB. PT IS CALM AND PLEASANT. PT IS A&OX4 UP TOLERATED IN HER ROOM.
[2019-12-15 05:18] VITALS: BP 167/64
[2019-12-15] MEDS: LEVOTHYROXINE 75 MCG TABLET PO SCH (05:56)
--- NOTE | 2019-12-15 06:53 | PN ---
DATE: SUBJECTIVE: The patient ____ COVID-19, respiratory distress. The patient is feeling somewhat better actually very energetic. The patient denies any chest pain, shortness of breath. Blood pressure 158/76, respiratory rate 20, pulse 76, afebrile, 2 liters 97%. PHYSICAL EXAMINATION: GENERAL: The patient is alert and oriented. LUNGS: Diminished, but clear. CARDIOVASCULAR: Stable. ABDOMEN: Soft, nontender, no rebound or guarding. Positive bowel sounds, no hepatosplenomegaly noted. LABORATORY DATA: White count 10, hemoglobin and hematocrit 11 and 34, glucose 181, BUN and creatinine 32 and 1.2. Sodium and potassium, stable. Albumin down to 2.3. IMPRESSION: Acute respiratory failure, COVID-19 positive, acute bronchitis, acute renal failure secondary to renal stasis, type 2 diabetes, morbid obesity. PLAN: Continue on present protocol. Hopefully, ready for discharge in the a.m. SHANTHI LEHMAN MD DR: EDE/pia JOB#: [id number] / [id number]
[2019-12-15] MEDS: INSULIN LISPRO 300 UNITS/3 ML VIAL. SQ SCH (08:00)
[2019-12-15] MEDS: LACTOBACILLUS RHAMNOSUS GG 1 CAPSULE. PO SCH (08:57)
[2019-12-15] MEDS: CETIRIZINE HCL 10 MG TABLET PO SCH (08:57)
[2019-12-15] MEDS: POTASSIUM CHLORIDE 10 MEQ TABLET.ER. PO SCH (08:58)
[2019-12-15] MEDS: HYDROXYCHLOROQUINE (PROGRAM) 200 MG TABLET PO SCH (08:58)
[2019-12-15] MEDS: OXYBUTYNIN CHLORIDE 5 MG TABLET PO SCH (08:58)
[2019-12-15] MEDS: glipiZIDE 5 MG TABLET PO SCH (08:58)
[2019-12-15] MEDS: GABAPENTIN 300 MG CAPSULE. PO SCH (08:58)
[2019-12-15] MEDS: LINAGLIPTIN 5 MG TABLET PO SCH (08:58)
[2019-12-15] MEDS: CHOLECALCIFEROL (VITAMIN D3) 1,000 UNIT TABLET PO SCH (08:58)
[2019-12-15] MEDS: PANTOPRAZOLE 40 MG TABLET. PO SCH (08:59)
[2019-12-15] MEDS: DOCUSATE SODIUM 100 MG CAPSULE PO SCH (08:59)
[2019-12-15] MEDS: AZITHROMYCIN 250 MG TABLET. PO SCH (08:59)
[2019-12-15] MEDS: CELECOXIB 100 MG CAPSULE PO SCH (08:59)
[2019-12-15] MEDS: ASPIRIN CHEWABLE 81 MG TABLET. PO SCH (08:59)
[2019-12-15] MEDS: cycloSPORINE 0.05% OPTH 1 DROP DROPERETTE OU SCH (08:59)
[2019-12-15] MEDS: CARVEDILOL 12.5 MG TABLET PO SCH (08:59)
[2019-12-15] MEDS: FUROSEMIDE 40 MG TABLET PO SCH (08:59)
[2019-12-15] MEDS: INSULIN GLARGINE SYRINGE. SQ SCH (09:00)
[2019-12-15] MEDS: DEXAMETHASONE SOD PHOS 4 MG/ML VIAL. IV SCH (09:03)
[2019-12-15] MEDS: CITALOPRAM 20 MG TABLET. PO SCH (09:06)
[2019-12-15] MEDS: ATORVASTATIN CALCIUM 20 MG TABLET PO SCH (10:51)
[2019-12-15] MEDS ORDERED: GUAI5SYR PO (10:57)
[2019-12-15] MEDS ORDERED: DEXA4TAB63 PO (10:57)
[2019-12-15] MEDS ORDERED: LACT1CAP19 PO (10:57)
[2019-12-15] MEDS ORDERED: AZIT250T6 PO (10:57)
[2019-12-15 11:03] VITALS: BP 155/82
--- NOTE | 2019-12-15 11:19 | NUR ---
NURSING NOTE: DISCHARGE PT DISCHARGED FROM UNIT ACCOMPANIED BY SELF VIA W/C. WRITTEN AND ORAL DISCHARGE INSTRUCTIONS GIVEN. VERBAL UNDERSTANDING RECEIVED. PT HAD NO QUESTIONS. RX CALLED INTO [facility] IN [place] PER PT REQUEST. JULIO YA
--- NOTE | 2019-12-16 16:08 | DS ---
DATE OF DISCHARGE: 12/15/2019 HOSPITAL COURSE: An 84-year-old female, positive COVID-19, had some respiratory difficulties and was admitted for aggressive pulmonary toilet as well as IV antibiotic therapy and treatment for her COVID-19. The patient also is diabetic and was monitored on her diabetes. She has hydroxychloroquine, azithromycin, Celexa. She had some remdesivir. The patient made good progress during the rest of her hospitalization and actually within a few days, made such a good recovery that she was able to be discharged home at her pleasant age of 84. She made extremely good progress and was mobilizing without any complication and she was discharged home to follow up as an outpatient. IMPRESSION: Acute respiratory failure, COVID-19 positive, acute bronchitis, acute renal failure secondary to renal stasis, type 2 diabetes, morbid obesity, anemia of chronic disease. PLAN: The patient will be discharged home, followed up as an outpatient. Make further evaluation on her as indicated. She will be on a diabetic diet, decreased activity and continue her home medications. SHANTHI LEHMAN MD DR: EDE/pia JOB#: [id number] / [id number]
[2019-12-17] MEDS ORDERED: NON FORMULARY ITEM (Alendronate Sodium (Fosamax) 1 TAB) PO SCH (09:00)
== END 2019-12-15 11:19 | disposition home or self-care (01) | DRG 177 ==
LOC: ER 13:36 → 1 SOUTH 16:47 → ER 17:28
PROVIDERS: ADMIT Family Medicine; ATTEND Family Medicine
DX: U07.1 COVID-19 (principal); J96.00 Acute respiratory failure, unspecified whether with hypoxia or hypercapnia; N17.9 Acute kidney failure, unspecified; E44.0 Moderate protein-calorie malnutrition; M19.90 Unspecified osteoarthritis, unspecified site; J44.9 Chronic obstructive pulmonary disease, unspecified; E66.9 Obesity, unspecified; E03.9 Hypothyroidism, unspecified; F32.9 Major depressive disorder, single episode, unspecified; Z86.14 Personal history of Methicillin resistant Staphylococcus aureus infection; Z82.49 Family history of ischemic heart disease and other diseases of the circulatory system; E66.01 Morbid (severe) obesity due to excess calories; J20.9 Acute bronchitis, unspecified; N18.9 Chronic kidney disease, unspecified; E11.22 Type 2 diabetes mellitus with diabetic chronic kidney disease; I12.9 Hypertensive chronic kidney disease with stage 1 through stage 4 chronic kidney disease, or unspecified chronic kidney disease; E88.09 Other disorders of plasma-protein metabolism, not elsewhere classified; Z68.36 Body mass index [BMI] 36.0-36.9, adult; I25.2 Old myocardial infarction; Z88.5 Allergy status to narcotic agent; Z88.8 Allergy status to other drugs, medicaments and biological substances; Z87.01 Personal history of pneumonia (recurrent)
CPT/HCPCS: 36415; 71045; 80048; 80053; 81001; 82947; 83605; 83735; 83880; 84484; 85007; 85025; 87804; 93005; 96360; J0456; J1100; J1650; J1815; J7040; J7613; 99285-25; J7030; U0003-CS

== ENCOUNTER → 2020-06-16 | Outpatient (CLI) | payer MEDICARE, OTHER ==
[~2020-06-16] MED LIST changes: +AZIT250T6 PO; +DEXA4TAB63 PO; +GUAI5SYR PO; -ISOS30TA4 PO; +ISOS30TA68 PO; +LACT1CAP19 PO
--- NOTE | 2020-06-16 17:53 | RAD ---
Exam: CT abdomen/pelvis without intravenous contrast Indication: Comparison: CT abdomen pelvis 09/10/2017 Technique: Helical CT imaging performed of the abdomen and pelvis without the use of intravenous cont rast. Sagittal and coronal reformats were obtained. One or more of the following individualized dose reduction techniques were utilized for this examinat ion: 1. Automated exposure control 2. Adjustment of the mA and/or kV according to patient size 3. Use of iterative reconstruction technique. Findings: Inherently limited evaluation without intravenous contrast. Lower chest: There are mitral annulus calcifications. Heart is normal. Lung bases are clear. Liver: The liver measures 17 cm cranial caudally. Several hypodense lesions measuring up to 1 cm are unchanged and likely cysts. Gallbladder/Biliary Tree: Gallbladder surgically absent. Bile ducts are normal. Pancreas: Normal. Spleen: Normal. Adrenal Glands: Unchanged 1 cm left adrenal adenoma. Right adrenal gland is normal. Kidneys/Ureters/Bladder: Kidneys are normal in size. No hydronephrosis or nephrolithiasis. Bilateral renal cysts are demonstrated. This includes a simple cyst on the right measuring 1.3 cm. A simple cys t on the left measures 1 cm. A cyst in the inferior left renal pole has increased in size, now 3 cm. This is now mostly simple fluid density, previously hemorrhagic. There is a small amount of residual hemorrhagic component on the right side of the cyst. Additional hemorrhagic cyst in the left renal po le measuring approximately 1.2 cm is slightly larger. Ureters and bladder are normal. Reproductive Organs: Uterus is surgically absent. A fluid attenuation right adnexal cystic structure has mildly increased in size, now 4.4 cm, previously 3.6 cm on 09/10/2017 and 2.7 cm on 08/03/2014. This may be a paraovarian cyst. Ovaries are otherwise normal in appearance. Stomach, small bowel, and colon: Small hiatal hernia. No small bowel obstruction. There is a 1.5 cm r ectangular radiopaque density in the small bowel in the right hemiabdomen, possibly a congested pill or foreign body. The colon is normal. Vasculature: No aortic aneurysm. Severe calcified aortoiliac atherosclerosis. Lymph Nodes: No lymphadenopathy. Peritoneum and retroperitoneum: No free fluid or free air. Bones: Grade 1 spondylolisthesis at L4-L5 and moderate degenerative disc disease of the lumbar spine is unchanged. There is lumbar scoliosis. No acute fracture. Impression: 1. Hepatic and renal cysts as above. 2. Mildly increased size of cystic structure in the right adnexa, likely a paraovarian cyst. 3. 1.5 cm rectangular density in the small bowel may be an ingested pill or foreign body. 4. Small hiatal hernia. 5. Severe calcified aortoiliac atherosclerosis. Electronically signed by: Ivonne Casey MD (06/16/2020 5:51 PM) [id number]
== END ==
LOC: CT 09:40
PROVIDERS: ATTEND Family Medicine
DX: N28.1 Cyst of kidney, acquired (principal); K76.89 Other specified diseases of liver; K44.9 Diaphragmatic hernia without obstruction or gangrene; I70.0 Atherosclerosis of aorta
CPT/HCPCS: 74176

== ENCOUNTER → 2021-05-15 | Outpatient (CLI) | payer MEDICARE, OTHER ==
[~2021-05-15] MED LIST changes: -CITA10TA4 PO; +CITA10TA5 PO; +FEXO-212 PO; -FEXO180T16 PO
[2021-05-15 13:23] LABS: BASO # 0.1 x10^3/uL (0.0-0.2); BASO % 1 % (0-3); EOS # 0.2 x10^3/uL (0.0-0.7); EOS % 4 % (0-3); HEMATOCRIT 36.2 % (36.0-47.0); HEMOGLOBIN 12.2 g/dL (12.0-15.5); LYMPH # 1.9 x10^3/uL (1.0-4.8); LYMPH % 33 % (24-48); MEAN CORPUSCULAR HEMOGLOBIN 31 pg (25-35); MEAN CORPUSCULAR HGB CONC 34 g/dL (31-37); MEAN CORPUSCULAR VOLUME 91 fL (79-100); MONO # 0.5 x10^3/uL (0.0-1.1); MONO % 9 % (0-9); NEUT # 3.1 x10^3uL (1.8-7.7); NEUT % 53 % (31-73); PLATELET COUNT 144 x10^3/uL (140-400); RED BLOOD COUNT 3.98 x10^6/uL (3.50-5.40); RED CELL DISTRIBUTION WIDTH 14.9 % (11.5-14.5); WHITE BLOOD COUNT 5.8 x10^3/uL (4.0-11.0)
[2021-05-15 13:35] LABS: ALBUMIN 3.8 g/dL (3.4-5.0); ALBUMIN/GLOBULIN RATIO 1.2 (1.0-1.7); CALCIUM 8.9 mg/dL (8.5-10.1); CREATININE 1.2 mg/dL (0.6-1.0); GFR 42.5; POTASSIUM 3.9 mmol/L (3.5-5.1); TOTAL BILIRUBIN 0.5 mg/dL (0.2-1.0)
[2021-05-16 00:08] LABS: HEMOGLOBIN A1C 6.2 % (4.8-5.6)
[2021-05-16 15:11] LABS: CHOLESTEROL/HDL RATIO 3.5
== END ==
LOC: LAB 12:17
PROVIDERS: ATTEND Family Medicine
DX: I10 Essential (primary) hypertension (principal); J44.9 Chronic obstructive pulmonary disease, unspecified; R07.89 Other chest pain; Z79.899 Other long term (current) drug therapy
CPT/HCPCS: 36415; 80053; 80061; 83036; 83880; 85025; 85610; 85730